=== PATIENT | female | born 1945 | race Caucasian/White ===

== ENCOUNTER 2021-10-10 07:27 | Inpatient (IN) ==
[2021-10-10] MEDS ORDERED: FLUORESCEIN ONE (08:07)
--- NOTE | 2021-10-10 08:10 | DR.URIAD ---
HPI Time Seen Time Seen by Provider: 10/10/21 08:08 PCP Primary Care Physician: LYUBOV YBARRA Complaint Chief Complaint Doctors Comments: 76 y/o female treated for pneumonia 2 weeks ago, presents for evaluation. Not feeling better, was treated with cipro, had steroids added yesterday. Pt with increasing dyspnea. Worse with talking, exertion, better with rest. Having cough, mostly npon productive. Having anterior chest pain, radiates to the back. Sharp, worse with breathing. + nausea, vomited once last pm. Having recurrent fevers. Chief Complaint:: PT REPORTS DX OF PNEUMONIA PER LYUBOV YBARRA 2 WEEKS AGO , PT WAS PLACED ON ABX ( CIPRO ) PT REPORTS CALLING LYUBOV YBARRA'S OFF ON 10/09/21 AND PT PLACED ON STERIODS DUE TO > SOB, AND SHARP PAINS TO HER RIGHT CHEST AREA ,BR Self Treatment fo Chief Complaint: LOW GRADE TEMP AT HOME , 100.7 COVID-19 Coronavirus risk:travel/contact w/high risk person: No Has patient experienced Coronavirus symptoms: Yes Coronavirus symptoms experienced: Fever, Coughing and Shortness of Breath Reviewed Nurses Notes Reviewed: Yes Source History Provided: Patient Mode of Arrival Mode of Arrival: Ambulatory Timing Onset of Chief Complaint: 09/26/21 PMH PMH Past Medical History: No Past Surgical History: No Family History History of Family Medical Conditions: No Social History Does patient currently use any type of tobacco product: No Have you used tobacco products in the last 12 months: No Type of Tobacco Use: None Does any household member use tobacco: No Alcohol Use: None Do you use any recreational Drugs:: No Lives With: Family Lives Where: Home Travel Risk Coronavirus risk:travel/contact w/high risk person: No Has patient experienced Coronavirus symptoms: No Infectious screening In the last 2 months have you had wt loss of >10#?: NO Have you had fever, night sweats or hemotysis?: No Have you traveled outside the country in the last 6 months?: No Isolation: Standard ROS Review of Systems Constitutional: Fever Eyes: No Symptoms Reported ENTM: No Symptoms Reported Respiratoy: Non-Productive Cough and Short of Breath Cardiovascular: Chest Pain Gastrointestinal/Abdominal: Nausea and Vomiting Genitourinary: No Symptoms Reported Neurological: No Symptoms Reported Musculoskeletal: No Symptoms Reported Integumentary: No Symptoms Reported Hematologic/Lymphatic: No Symptoms Reported Psychiatric: No Symptoms Reported All Other Systems: Reviewed and Negative PE Vital Signs Vitals: Temperature 96.6 F Pulse Rate 88 Respiratory Rate 22 Blood Pressure 148/67 O2 Sat by Pulse Oximetry 98 General Limitations: No Limitations General Appearance: Alert Head Head Exam: Normal Inspection Eyes Eye exam: PERRL and EOMI ENT ENT Exam: Normal Exam and Mucous Membranes Moist Neck Neck Exam: Normal Inspection and Full ROM Chest Chest Inspection: Normal Inspection Respiratory Respiratory Exam: Normal Lung Sounds Bilat and Respiratory Distress (mild, worse with talking); negative Accessory Muscle Use Respiratory Exam: Bilateral: Clear to Auscultation Cardiovascular Cardiovascular Exam: Regular Rate, Normal Rhythm, Tachycardia and Normal Heart Sounds Abdominal Exam Abdominal Exam: Normal Inspection, Normal Bowel Sounds and Soft; negative Tenderness Extremeties Extremities Exam: Normal Inspection and Full ROM; negative Tenderness and Edema Back Back Exam: Normal Inspection Neurologic Neurological Exam: Alert, Oriented X3 and CN II-XII Intact; negative Motor Sensory Deficit Psychiatric Psychiatric Exam: Normal Affect Skin Skin Exam: Warm and Dry MDM Differential Diagnosis Differential Diagnosis: Pneumonia (bronchitis, CHF, PE) COURSE Treatment Treatment: 76 y/o female with worsening breathing, cough over the past 3 weeks. W/u initiated. 926 - CXR with R sided lower consolidation with effusion. WBC mildly elevated, d-dimer elevated 2.88. Na low at 126. Lactic acid, cardiac enzymes and BNP acceptable. Will pursue with a CTA of the chest for further evaluation. Given IV rocephin for antibiotic coverage. 1055 - CTA - + RML/RLL infiltrate with surrounding pleural effusion. Discussed with Dr Hensley, will admit. ROR Labs Reviewed Laboratory Results Reviewed?: Yes Result Diagrams: 10/10/21 08:39 10/10/21 08:39 Laboratory: WBC 10.9 X10^3/uL (3.6-10.0) H 10/10/21 08:39 RBC 5.00 X10^6/uL (3.5-5.4) 10/10/21 08:39 Hgb 14.6 g/dL (12.0-16.0) 10/10/21 08:39 Hct 42.1 % (36.0-47.0) 10/10/21 08:39 MCV 84.2 fL (80.0-100.0) 10/10/21 08:39 MCH 29.2 pg (27.0-34.0) 10/10/21 08:39 MCHC 34.7 g/dL (33.0-35.0) 10/10/21 08:39 RDW 13.6 % (11.6-16.5) 10/10/21 08:39 Plt Count 265 X10^3/uL (150.0-450.0) 10/10/21 08:39 MPV 8.3 fL (7.4-11.0) 10/10/21 08:39 Neut % (Auto) 77.3 % (42.0-75.0) H 10/10/21 08:39 Lymph % (Auto) 10.8 % (21.0-51.0) L 10/10/21 08:39 [place] % (Auto) 10.4 % (0.0-13.0) 10/10/21 08:39 Eos % (Auto) 1.1 % (0.9-2.9) 10/10/21 08:39 Baso % (Auto) 0.4 % (0.2-1.0) 10/10/21 08:39 Neut # (Auto) 8.4 x10^3/uL (2.2-4.8) H 10/10/21 08:39 Lymph # (Auto) 1.2 X10^3/uL (1.3-2.9) L 10/10/21 08:39 [place] # (Auto) 1.1 x10^3/uL (0.3-0.8) H 10/10/21 08:39 Eos # (Auto) 0.1 x10^3/uL (0.0-0.2) 10/10/21 08:39 Baso # (Auto) 0.0 X10^3/uL (0.0-0.1) 10/10/21 08:39 Absolute Nucleated RBC 0.0 /100WBC 10/10/21 08:39 D-Dimer 2.88 ug/ml (0.0-0.57) H* 10/10/21 08:39 Sodium 126 mmol/L (136-145) L 10/10/21 08:39 Corrected Sodium 127 mmol/L (136-145) L 10/10/21 08:39 Potassium 3.7 mmol/L (3.5-5.1) 10/10/21 08:39 Chloride 90 mmol/L (98-107) L 10/10/21 08:39 Carbon Dioxide 27.9 mmol/L (21-32) 10/10/21 08:39 BUN 8 mg/dL (7-18) 10/10/21 08:39 Creatinine 0.88 mg/dL (0.55-1.02) 10/10/21 08:39 Est GFR (MDRD) Af Amer > 60 (>60) 10/10/21 08:39 Est GFR (MDRD) Non-Af > 60 (>60) 10/10/21 08:39 Glucose 139 mg/dL (65-99) H 10/10/21 08:39 Lactic Acid 0.8 mmol/L (0.4-2.0) 10/10/21 08:39 Calcium 8.5 mg/dL (8.5-10.1) 10/10/21 08:39 Corrected Calcium 9.1 mg/dL (8.5-10.1) 10/10/21 08:39 Total Bilirubin 0.80 mg/dL (0.2-1.0) 10/10/21 08:39 AST 26 Units/L (15-37) 10/10/21 08:39 ALT 23 Units/L (12-78) 10/10/21 08:39 Alkaline Phosphatase 83 Units/L (46-116) 10/10/21 08:39 Creatine Kinase 65 Units/L (26-192) 10/10/21 08:39 CK-MB (CK-2) 1.3 ng/mL (0-4.0) 10/10/21 08:39 CK/CKMB % Calc 2.0 % (<4) 10/10/21 08:39 Troponin I High Sens 6.5 ng/L (4.0-60.0) 10/10/21 08:39 B-Natriuretic Peptide 37.8 pg/mL (0-79) 10/10/21 08:39 Total Protein 7.2 g/dL (6.4-8.2) 10/10/21 08:39 Albumin 3.2 g/dL (3.4-5.0) L 10/10/21 08:39 Globulin 4.0 g/dL (2.5-4.5) 10/10/21 08:39 Albumin/Globulin Ratio 0.8 Ratio (1.1-2.1) L 10/10/21 08:39 Lipase 135 Units/L (73-393) 10/10/21 08:39 Specimen Type Clean catch urine 10/10/21 08:29 Urine Color Straw (YELLOW) 10/10/21 08:29 Urine Appearance Clear (CLEAR) 10/10/21 08:29 Urine pH 6.0 (5.0 - 8.0) 10/10/21 08:29 Ur Specific [place] 1.015 (1.000-1.030) 10/10/21 08:29 Urine Protein 1+ (NEGATIVE) 10/10/21 08:29 Urine Glucose (UA) Negative (NEGATIVE) 10/10/21 08:29 Urine Ketones Negative (NEGATIVE) 10/10/21 08:29 Urine Blood 1+ (NEGATIVE) 10/10/21 08:29 Urine Nitrite Negative (NEGATIVE) 10/10/21 08:29 Urine Bilirubin Negative (NEGATIVE) 10/10/21 08:29 Urine Urobilinogen Normal (NORMAL) 10/10/21 08:29 Ur Leukocyte Esterase Negative (NEGATIVE) 10/10/21 08:29 Urine RBC 0-2 /HPF (0-3) 10/10/21 08:29 Urine WBC 0-2 /HPF (0-5) 10/10/21 08:29 Ur Squamous Epith Cells Rare /HPF (NEGATIVE) 10/10/21 08:29 Urine Bacteria Trace /HPF (NEGATIVE) 10/10/21 08:29 Ur Culture Indicated? No/not indicated 10/10/21 08:29 SARS-CoV-2 (PCR) Negative (NEGATIVE) 10/10/21 08:29 Influenza Type A (PCR) Negative (NEGATIVE) 10/10/21 08:29 Influenza Type B (PCR) Negative (NEGATIVE) 10/10/21 08:29 RSV (PCR) Negative (NEGATIVE) 10/10/21 08:29 XRAY XRAY Interpreted by: Both X-ray Results: + RML/RLL consolidation with effusion EKG Rate: 101 [place]: Normal Rhythm: ST Block: None Hypertrophy: None ST: Nonsp Opioid Opioid Risk Tool Age (Nabil box if 16-45): No History of Preadolescent Sexual Abuse: No Total: 0 Total Score Risk Category: Low Risk Copyright: [employer] LR predicting aberrant behaviors Diagnosis Discharge Problem: Pneumonia involving right lung Qualifiers: Pneumonia type: due to unspecified organism Lung location: unspecified part of lung Qualified Code(s): J18.9 - Pneumonia, unspecified organism
[2021-10-10] MEDS ORDERED: NS 500 ML IV 500 ML IV ONE ×2 (08:16→08:24)
--- NOTE | 2021-10-10 08:40 | RAD ---
HISTORYCOUGH, FEVER, PNEUMONIASTUDYCHEST, 1 VIEWCOMPARISONNoneTECHNIQUEAP view of the chestFINDINGSThe right heart border is silhouetted. There is right mid to lower lung airspace opacity. Suspect a subpulmonic effusion. No pneumothoraxIMPRESSIONRight mid to lower lung pneumonia with subpulmonic effusion suspected. Recommend follow-up to document resolution.Electronically signed by: Leobardo Nelson (Oct 10, 2021 08:39:55)
[2021-10-10 08:48] LABS: BILIRUBIN,URINE NEGATIVE (NEGATIVE); BLOOD/HEMOGLOBIN,URINE 1+ (NEGATIVE); GLUCOSE, URINE NEGATIVE (NEGATIVE); KETONES,URINE NEGATIVE (NEGATIVE); LEUKOCYTE ESTERASE ,URINE NEGATIVE (NEGATIVE); NITRITES,URINE NEGATIVE (NEGATIVE); PROTEIN,URINE 1+ (NEGATIVE); UROBILINOGEN,URINE NORMAL (NORMAL)
[2021-10-10 08:55] LABS: BASOPHILS % (AUTO) 0.4 % (0.2-1.0); EOSINOPHILS # (AUTO) 0.1 x10^3/uL (0.0-0.2); EOSINOPHILS % (AUTO) 1.1 % (0.9-2.9); HEMATOCRIT 42.1 % (36.0-47.0); HEMOGLOBIN 14.6 g/dL (12.0-16.0); LYMPHOCYTES # (AUTO) 1.2 X10^3/uL (1.3-2.9); LYMPHOCYTES % (AUTO) 10.8 % (21.0-51.0); MEAN CORPUSCULAR HEMOGLOBIN 29.2 pg (27.0-34.0); MEAN CORPUSCULAR HGB CONC 34.7 g/dL (33.0-35.0); MEAN CORPUSCULAR VOLUME 84.2 fL (80.0-100.0); MEAN PLATELET VOLUME 8.3 fL (7.4-11.0); MONOCYTES # (AUTO) 1.1 x10^3/uL (0.3-0.8); MONOCYTES % (AUTO) 10.4 % (0.0-13.0); NEUTROPHILS # (AUTO) 8.4 x10^3/uL (2.2-4.8); NEUTROPHILS % (AUTO) 77.3 % (42.0-75.0); RED CELL DISTRIBUTION WIDTH 13.6 % (11.6-16.5); WHITE BLOOD COUNT 10.9 X10^3/uL (3.6-10.0)
[2021-10-10 08:59] LABS: APPEARANCE,URINE CLEAR (CLEAR); COLOR,URINE STRAW (YELLOW)
[2021-10-10 09:00] LABS: BACTERIA,URINE TRACE /HPF (NEGATIVE); RBC,URINE 0-2 /HPF (0-3); SQUAMOUS EPITHELIAL CELL,UR RARE /HPF (NEGATIVE)
[2021-10-10 09:10] LABS: LACTIC ACID 0.8 mmol/L (0.4-2.0)
[2021-10-10 09:18] LABS: ALANINE AMINOTRANSFERASE 23 Units/L (12-78); ALBUMIN 3.2 g/dL (3.4-5.0); ALKALINE PHOSPHATASE 83 Units/L (46-116); ASPARTATE AMINO TRANSFERASE 26 Units/L (15-37); BLOOD UREA NITROGEN 8 mg/dL (7-18); CALCIUM 8.5 mg/dL (8.5-10.1); CARBON DIOXIDE 27.9 mmol/L (21-32); CHLORIDE 90 mmol/L (98-107); COR CA(FOR HYPOALB) 9.1 mg/dL (8.5-10.1); CREATINE KINASE 65 Units/L (26-192); CREATININE 0.88 mg/dL (0.55-1.02); LIPASE 135 Units/L (73-393); TOTAL PROTEIN 7.2 g/dL (6.4-8.2); eGFR NON BLACK RACES > 60 (>60)
[2021-10-10] MEDS ORDERED: ROCEPHIN 1 GRAM IV PREMIX 1 G/50 ML IV.SOLN. IV ONE (09:28)
[2021-10-10 09:40] LABS: CREATINE KINASE MB 1.3 ng/mL (0-4.0)
[2021-10-10 09:43] LABS: COR NA(FOR HYPERGLY) 127 mmol/L (136-145); SODIUM 126 mmol/L (136-145)
[2021-10-10] MEDS ORDERED: ROCEPHIN VIAL 1 GRAM 1 G in NS 100 ML IV 100 ML IV NR (09:45)
[2021-10-10] MEDS ORDERED: NS 100 ML IV 100 ML ONE ×3 (09:51→23:21)
[2021-10-10] MEDS ORDERED: ROCEPHIN VIAL 1 GRAM ONE (09:51)
--- NOTE | 2021-10-10 11:29 | CT ---
HISTORYPT REPORTS DX OF PNEUMONIA 2 WEEKS AGO, PT WAS PLACED ON ABX ( CIPRO ) PT PLACED ON STERIODS DUE TO > SOB, AND SHARP PAINS TO HER RIGHT CHEST AREASTUDYCTA CHESTCOMPARISONChest radiograph from same day.TECHNIQUECTA chest protocol with axial images from the thoracic inlet to upper abdomen with contrast. Sagittal and coronal reformats and MIP images were created. Automated exposure control was utilized.FINDINGSThe visualized thyroid gland appears benign. Mildly atherosclerotic normal caliber thoracic aorta. Pulmonary artery is normal in caliber centrally. No filling defect is identified to suggest pulmonary embolism. There is leftward shift of the heart and mediastinum. The heart is borderline in size. Small pericardial effusion. Conspicuous number of lymph nodes in the mediastinum. Prevascular space lymph node measures 9 mm image 47 series 4. There is soft tissue in right hilum extending into the right subcarinal station. Enlarged right lower paratracheal lymph node at 1.2 cm short axis image 46 series 4.Visualized upper abdomen has a benign appearance. No acute osseous abnormality. Mild thoracic kyphosis. The trachea and mainstem bronchi appear patent. Right upper lobe ground-glass and airspace opacities consistent with pneumonia in the right clinical setting. See image 57 series 5 for example. There is moderate to large right pleural effusion. Associated right lower lobe atelectasis. 4 x 3 mm left lower lobe pulmonary nodule image 86 series 5. There innumerable (> 30) less than 6 mm pulmonary nodules best seen on the axial MIPS sequence. For example such as image 17 series 10 in the left upper lobe. These nodules are seen throughout both lungs. No pneumothorax.IMPRESSIONInnumerable less than 6 mm bilateral pulmonary nodules are nonspecific and may represent infection or metastasis. Right upper lobe ground-glass and airspace opacity consistent with pneumonia in the right clinical setting. Moderate to large pleural effusion with mild contralateral shift of the heart and mediastinum. Mediastinal and hilar adenopathy worse on the right. This may be reactive or metastatic. Recommend follow-up CT after appropriate treatment to document resolution of these findings.Electronically signed by: Leobardo Nelson (Oct 10, 2021 11:28:44)
[2021-10-10] MEDS ORDERED: ROCEPHIN 1 GRAM IV PREMIX 1 G/50 ML IV.SOLN. IV SCH (14:05)
[2021-10-10] MEDS ORDERED: ROCEPHIN VIAL 1 GRAM 1 G in NS 100 ML IV 100 ML IV SCH (14:15)
[2021-10-10 14:32] VITALS: BMI 27.4
[2021-10-10] MEDS ORDERED: SALINE 3% 15 ML NEB TX NEB ONE (16:31)
[2021-10-10] MEDS: LOVENOX INJ 40 MG SYR SC SCH (16:46)
[2021-10-10] MEDS: XOPENEX 1.25 MG/3 ML NEBULE NEB SCH (17:07)
[2021-10-10] MEDS ORDERED: PULMICORT NEB TX 0.5 MG NEB ONE (19:16)
[2021-10-10] MEDS: PULMICORT NEB TX 0.5 MG NEB SCH (20:20)
[2021-10-10] MEDS ORDERED: LEVAQUIN PREMIX IV 500 MG 500 MG/100 ML BAG IV SCH (22:00)
[2021-10-10] MEDS ORDERED: FORTAZ or TAZICEF VIAL INJ ONE ×2 (22:06→23:21)
[2021-10-10] MEDS: FORTAZ or TAZICEF VIAL INJ 1 G in NS 100 ML IV + SPIKE MINIBAG* 100 ML IV SCH (22:09)
[2021-10-11] MEDS: XOPENEX 1.25 MG/3 ML NEBULE NEB SCH ×4 (00:09→18:31)
[2021-10-11 05:35] LABS: BASOPHILS # (AUTO) 0.1 X10^3/uL (0.0-0.1); BASOPHILS % (AUTO) 0.7 % (0.2-1.0); EOSINOPHILS # (AUTO) 0.1 x10^3/uL (0.0-0.2); EOSINOPHILS % (AUTO) 1.3 % (0.9-2.9); HEMATOCRIT 34.6 % (36.0-47.0); LYMPHOCYTES # (AUTO) 1.2 X10^3/uL (1.3-2.9); LYMPHOCYTES % (AUTO) 14.7 % (21.0-51.0); MEAN CORPUSCULAR HEMOGLOBIN 28.8 pg (27.0-34.0); MEAN CORPUSCULAR HGB CONC 34.3 g/dL (33.0-35.0); MEAN PLATELET VOLUME 8.8 fL (7.4-11.0); MONOCYTES % (AUTO) 12.9 % (0.0-13.0); NEUTROPHILS # (AUTO) 5.5 x10^3/uL (2.2-4.8); NEUTROPHILS % (AUTO) 70.4 % (42.0-75.0); RED BLOOD COUNT 4.12 X10^6/uL (3.5-5.4); RED CELL DISTRIBUTION WIDTH 13.6 % (11.6-16.5); WHITE BLOOD COUNT 7.8 X10^3/uL (3.6-10.0)
[2021-10-11] MEDS: FORTAZ or TAZICEF VIAL INJ 1 G in NS 100 ML IV + SPIKE MINIBAG* 100 ML IV SCH (05:47)
[2021-10-11 05:48] LABS: ALANINE AMINOTRANSFERASE 21 Units/L (12-78); ALBUMIN 2.3 g/dL (3.4-5.0); ALKALINE PHOSPHATASE 69 Units/L (46-116); ASPARTATE AMINO TRANSFERASE 22 Units/L (15-37); BLOOD UREA NITROGEN 6 mg/dL (7-18); CALCIUM 7.7 mg/dL (8.5-10.1); CARBON DIOXIDE 26.2 mmol/L (21-32); CHLORIDE 96 mmol/L (98-107); COR CA(FOR HYPOALB) 9.1 mg/dL (8.5-10.1); COR NA(FOR HYPERGLY) 130 mmol/L (136-145); HEMOGLOBIN 11.9 g/dL (12.0-16.0); SODIUM 129 mmol/L (136-145); TOTAL PROTEIN 5.6 g/dL (6.4-8.2); eGFR NON BLACK RACES > 60 (>60)
--- NOTE | 2021-10-11 05:51 | RAD ---
PROCEDURE: Chest X-ray 1 View .HISTORY: Dyspnea.TECHNIQUE: AP view .COMPARISON: 10/10/2021.TECHNICAL QUALITY: Satisfactory .FINDINGS:Unremarkable cardio mediastinal silhouette and normal central vascularity.Unchanged pneumonia right mid lower lung field with elevated right hemidiaphragm. Left lung gu clear.IMPRESSION:Unchanged right-sided pneumonia.Electronically signed by: Dago Messina (Oct 11, 2021 05:50:26)
[2021-10-11] MEDS ORDERED: K-RIDER 10 MEQ/NS 100 ML 10 MEQ/100 ML BAG IV PRN (07:15)
[2021-10-11] MEDS ORDERED: K-DUR TAB 20 MEQ PO PRN (07:15)
[2021-10-11] MEDS ORDERED: POTASSIUM CHL 40 MEQ/NS 0.45% 500 ML IV PRN (07:15)
[2021-10-11] MEDS ORDERED: KLOR-CON PO PRN (07:15)
[2021-10-11] MEDS ORDERED: MICRO K EXTEN CAP 10 MEQ PO PRN (07:15)
[2021-10-11] MEDS ORDERED: POTASSIUM CHL 60 MEQ/NS 0.45% 500 ML IV PRN (07:15)
[2021-10-11] MEDS ORDERED: POTASSIUM CHLORIDE LIQ 20 MEQ UDC PO PRN (07:15)
[2021-10-11] MEDS: ZIAC 5/6.25 MG PO SCH (08:34)
[2021-10-11] MEDS: LOVENOX INJ 40 MG SYR SC SCH (08:36)
[2021-10-11] MEDS: ROBITUSSIN DM PO SCH ×3 (08:47→21:13)
[2021-10-11] MEDS: PULMICORT NEB TX 0.5 MG NEB SCH ×2 (08:55→20:55)
--- NOTE | 2021-10-11 10:51 | DR.H&P ---
H&P - History & Physical for Day of: H&P Date: 10/10/21 - Chief Complaint Chief Complaint: SHORTNESS OF BREATH, COUGH - History of Present Illness History of Present Illness: IS A 76 YEAR OLD PATIENT OF OURS. SHE PRESENTED TO THE ER WITH COMPLAINTS OF INCREASING SHORTNESS OF BREATH, ANTERIOR CHEST PAIN WITH RADIATION TO THE BACK, AND A NON-PRODUCTIVE COUGH. WE HAVE BEEN TREATING HER IN THE OFFICE FOR PNEUMONIA FOR THE PAST TWO WEEKS. SHE HAS TAKEN A COURSE OF CIPRO. A MEDROL DOSEPACK WAS ALSO CALLED IN YESTERDAY. SHE REPORTS THAT SHORTNESS OF BREATH IS WORSE WHEN TALKING AND ON EXERTION. IT IS BETTER WITH REST. SHE ALSO ADMITS TO RECURRENT FEVER. SHE REPORTS HAVING A DRY, HACKING COUGH SINCE JUNE. PAIN IN CHEST IS DESCRIBED SHARP AND INTERMITTENT. HER PMH INCLUDES HYPERTENSION. ON ARRIVAL TO THE ER, VITALS WERE 96. 6-100-22-95%-159/74. LABS WERE OBTAINED. WBC 10.9, RBC 5.00, HGB 14.6, HCT 42.1, D-DIMER 2.88, SODIUM 126, CHLORIDE 90, BUN 8, CREATININE 0.88, GLUCOSE 139, LACTIC ACID 0.8, CALCIUM 8.5, AST 26, ALT 23, ALK PHOS 83, TOTAL PROTEIN 7.2, ALBUMIN 3.2. CARDIAC ENZYMES WERE WITHIN NORMAL LIMITS. URINALYSIS WAS UNREMARKABLE. COVID-19, INFLUENZA, AND RSV NEGATIVE. BLOOD CULTURES WERE SET UP. EKG OBTAINED AND REVEALED: SINUS TACHYCARDIA WITH HR 101. CHEST XRAY REVEALED: Right mid to lower lung pneumonia with subpulmonic effusion suspected. A CHEST CTA WAS OBTAINED AND REVEALED: Innumerable less than 6 mm bilateral pulmonary nodules are nonspecific and may represent infection or metastasis. Right upper lobe ground-glass and airspace opacity consistent with pneumonia in the right clinical setting. Moderate to large pleural effusion with mild contralateral shift of the heart and mediastinum. Mediastinal and hilar adenopathy worse on the right. This may be reactive or metastatic. IN THE ER, SHE WAS GIVEN A NORMAL SALINE BOLUS, ROCEPHIN 1G IV X 1 DOSE. SHE WAS ADMITTED TO THE HOSPITAL FOR FURTHER EVALUATON AND TREATMENT OF RIGHT SIDED PNEUMONIA, LARGE PLEURAL EFFUSION, MULTIPLE PULMONARY NODULES, AND SHORTNESS OF BREATH. SHE WAS STARTED ON FORTAZ 1G IV Q8H, LEVAQUIN 500MG IV DAILY, SOLU-MEDROL 80MG IV Q8H, ROBITUSSIN DM 10ML PO QID, PULMICORT NEBS BID, XOPENEX NEBS Q6H, LOVENOX 40MG SC DAILY, AND THE POTASSIUM PROTOCOL. WE WILL RESUME HER HOME MEDICATION OF ZIAC. WE WILL OBTAIN A SPUTUM CULTURE, AIT RESPIRATORY PANEL, ECHO, ROBERTO PANEL, AND WILL CONSULT FOR POSSIBLE THORACENTISIS. OTHERWISE, WE PLAN TO FOLLOW UP WITH AM LABS AND CHEST XRAY AND CONTINUE TO MONITOR. TIME SPENT ON CLINICAL ASSESSMENT, REVIEWING LABS AND IMAGING, DECISION MAKING, AND DOCUMENTATION GREATER THAN 75 MINUTES. - Past Medical History Past Medical History: Hypertension - Past Surgical History Surgical History: Hysterectomy - Family History Family Medical History: Diabetes Mellitus, Cancer, [place], Hypertension - Social History Does patient currently use any type of tobacco product: No Have you used tobacco products in the last 12 months: No Type of Tobacco Use: None Does any household member use tobacco: Yes Alcohol Use: None - Medications Home Medications: codeine Allergy (Verified 10/10/21 08:25) CONTINUE taking the following medications bisoprolol-hydrochlorothiazide 1 tab PO DAILY 10/10/21 [History] ciprofloxacin HCl 750 mg PO DAILY 10/10/21 [History] methylprednisolone 4 mg PO DIRECTED 10/10/21 [History] - Review of Systems Constitutional: Fever, Weakness Eyes: No Symptoms Reported ENT: No Symptoms Reported Respiratory: See HPI, Cough, Dry, Shortness of Breath, SOB with Excertion Cardiovascular: No Symptoms Reported Gastrointestinal: No Symptoms Reported Genitourinary: No Symptoms Reported Musculoskeletal: No Symptoms Reported Skin: No Symptoms Reported Neurological: Weakness - Physical Exam Vital Signs: Temperature 98.2 F Pulse Rate [Left Radial] 109 Pulse Rate 93 Respiratory Rate 18 Blood Pressure [Right Arm] 134/60 Blood Pressure [Left Arm] 126/58 Blood Pressure 148/67 O2 Sat by Pulse Oximetry 100 Oriented: Normal Eyes: Normal Ear: Normal Nose: Normal Throat: Normal Respiratory: Diminished Throughout Cardiovascular: Normal : Normal Auscultation: Bowel Sounds: Normal Palpation: Normal Tenderness: Normal Skin: Normal Musculoskeletal: Normal Psychiatric: Normal Mood Description: Calm Affect: Normal Speech Pattern: Clear - Assessment/Plan (1) Pneumonia involving right lung Qualifiers: Pneumonia type: due to unspecified organism Lung location: unspecified part of lung Qualified Code(s): J18.9 - Pneumonia, unspecified organism Status: Acute Plan: ADMIT, FORTAZ 1G IV Q8H, LEVAQUIN 500MG IV DAILY, SOLU-MEDROL 80MG IV Q8H, ROBITUSSIN DM 10ML PO QID, PULMICORT NEBS BID, XOPENEX NEBS Q6H, LOVENOX 40MG SC DAILY, AND THE POTASSIUM PROTOCOL. CONSULT FOR THORACENTESIS. RESUME ZIAC (2) Large pleural effusion Status: Acute (3) Multiple lung nodules on CT Status: Acute (4) Shortness of breath Status: Acute - Allergies Allergies/Adverse Reactions: Allergies Allergy/AdvReac Type Severity Reaction Status Date / Time codeine Allergy Verified 10/10/21 08:25
[2021-10-11] MEDS ORDERED: NS 250 ML IV 250 ML IV ONE (11:57)
[2021-10-11] MEDS: SOLU-Medrol 40 MG VIAL IVP SCH ×3 (12:02→21:13)
[2021-10-11] MEDS: LEVAQUIN PREMIX IV 500 MG 500 MG/100 ML BAG IV SCH (12:03)
[2021-10-11] MEDS ORDERED: XANAX PO ONE (15:00)
[2021-10-11] MEDS: FORTAZ or TAZICEF VIAL INJ 1 G in NS 100 ML IV 100 ML IV SCH ×2 (15:05→21:13)
--- NOTE | 2021-10-11 16:57 | RAD ---
HISTORYThoracentesisSTUDYCHEST, 1 VIEWCOMPARISONChest radiograph, October 11, 2021 at 5:04 a.m. and CTA chest, October 10, 2021TECHNIQUEChest radiographic imaging, AP portable projection, 1 imageFINDINGSNo cardiomegaly.Airspace disease in the right perihilar region; as seen on the previous exam.Decreased right sided pleural effusion.Prominent interstitial markings in the right lung versus the left.No pneumothorax.No acute osseous abnormality.IMPRESSIONDecreased right pleural effusion is consistent with the given history of a recent thoracentesis. No pneumothorax is identified. Persistent airspace disease and increased interstitial markings in the right lung. Recommend follow-up imaging as discussed on the CTA chest report from October 10, 2021.Electronically signed by: Gelacio Peres (Oct 11, 2021 16:56:10)
[2021-10-11 17:26] LABS: ALBUMIN 2.7 g/dL (3.4-5.0)
[2021-10-11] MEDS ORDERED: LEVAQUIN PREMIX IV 250 MG 250 MG/50 ML BAG IV SCH (21:00)
[2021-10-12] MEDS: XOPENEX 1.25 MG/3 ML NEBULE NEB SCH ×4 (00:10→17:48)
[2021-10-12] MEDS: MAGNESIUM SULFATE 1 GRAM/100 mL PREMIX 1 G/100 ML BAG IV PRN ×2 (02:27→04:07)
[2021-10-12] MEDS: FORTAZ or TAZICEF VIAL INJ 1 G in NS 100 ML IV 100 ML IV SCH ×3 (05:11→21:21)
[2021-10-12] MEDS: SOLU-Medrol 40 MG VIAL IVP SCH ×3 (05:11→21:21)
[2021-10-12 06:05] LABS: BASOPHILS % (AUTO) 0.2 % (0.2-1.0); HEMOGLOBIN 12.2 g/dL (12.0-16.0); LYMPHOCYTES # (AUTO) 0.7 X10^3/uL (1.3-2.9); LYMPHOCYTES % (AUTO) 6.2 % (21.0-51.0); MEAN CORPUSCULAR HEMOGLOBIN 28.6 pg (27.0-34.0); MEAN CORPUSCULAR HGB CONC 33.9 g/dL (33.0-35.0); MEAN CORPUSCULAR VOLUME 84.3 fL (80.0-100.0); MEAN PLATELET VOLUME 8.6 fL (7.4-11.0); MONOCYTES # (AUTO) 0.3 x10^3/uL (0.3-0.8); MONOCYTES % (AUTO) 2.4 % (0.0-13.0); NEUTROPHILS # (AUTO) 10.3 x10^3/uL (2.2-4.8); NEUTROPHILS % (AUTO) 91.2 % (42.0-75.0); RED BLOOD COUNT 4.27 X10^6/uL (3.5-5.4); RED CELL DISTRIBUTION WIDTH 13.5 % (11.6-16.5); WHITE BLOOD COUNT 11.3 X10^3/uL (3.6-10.0)
--- NOTE | 2021-10-12 06:10 | RAD ---
HISTORYSOB HX: HTN SX: HYSTERECTOMYSTUDYCHEST, 1 [id number]/01/2022FINDINGSThe trachea is midline. The cardiac silhouette is unremarkable. Airspace disease again noted in the right perihilar region. There is blunting of the right costophrenic angle due to trace pleural effusion. The left lung is clear. The bony thorax is unremarkable.IMPRESSIONStable portable chest.Electronically signed by: Rhett Rasmussen (Oct 12, 2021 06:10:41)
[2021-10-12 06:18] LABS: ALANINE AMINOTRANSFERASE 27 Units/L (12-78); ALBUMIN 2.3 g/dL (3.4-5.0); ALKALINE PHOSPHATASE 81 Units/L (46-116); ASPARTATE AMINO TRANSFERASE 22 Units/L (15-37); BLOOD UREA NITROGEN 7 mg/dL (7-18); CALCIUM 8.4 mg/dL (8.5-10.1); CARBON DIOXIDE 24.5 mmol/L (21-32); CHLORIDE 98 mmol/L (98-107); COR CA(FOR HYPOALB) 9.8 mg/dL (8.5-10.1); COR NA(FOR HYPERGLY) 134 mmol/L (136-145); CREATININE 0.95 mg/dL (0.55-1.02); MAGNESIUM 2.7 mg/dL (1.7-2.9); SODIUM 130 mmol/L (136-145); TOTAL PROTEIN 5.8 g/dL (6.4-8.2); eGFR NON BLACK RACES > 60 (>60)
[2021-10-12 06:58] LABS: PLATELET MORPHOLOGY COMMENT NORMAL (NORMAL)
[2021-10-12] MEDS: LEVAQUIN PREMIX IV 500 MG 500 MG/100 ML BAG IV SCH (08:25)
[2021-10-12] MEDS: LOVENOX INJ 40 MG SYR SC SCH (08:25)
[2021-10-12] MEDS: ZIAC 5/6.25 MG PO SCH (08:26)
[2021-10-12] MEDS: ROBITUSSIN DM PO SCH ×4 (08:33→21:21)
--- NOTE | 2021-10-12 09:27 | PCM.PROG ---
Progress Note - Progress Note for Day of Date of Exam: 10/11/21 - Subjective Subjective: WAS ADMITTED FOR TREATMENT OF PNEUMONIA, LARGE PLEURAL EFFUSION, MULTIPLE LUNG NODULES ON CT, SHORTNESS OF BREATH, AND HYPONATREMIA. TODAY, SHE IS ALERT AND ORIENTED, LYING IN BED ON MORNING ROUNDS. SHE CONTINUES WITH COMPLAINTS OF COUGH AND SHORTNESS OF BREATH TODAY. SHE REPORTS CHEST PRESSURE AND INABILITY TO TAKE A DEEP BREATH. SHE IS CURRENTLY UTILIZING OXYGEN VIA NASAL CANNULA AT 2 LPM. SATURATIONS HAVE BEEN IN THE 90s THIS MORNING AND THROUGHOUT THE NIGHT. ON EXAMINATION, HEART IS REGULAR IN RATE AND RHYTHM. BILATERAL LUNGS NOTED WITH DIMINISHED LUNG SOUNDS THROUGHOUT. ABDOMEN IS ROUND, SOFT, AND NON-TENDER WITH NORMAL BOWEL SOUNDS NOTED IN ALL QUADRANTS. HER VITALS THIS MORNING ARE: 98.2-109-18-94%-134/60. LABS WERE OBTAINED. WBC 7.8, HGB 11.9, HCT 34.6, SODIUM 128, POTASSIUM 3.6, GLUCOSE 130, CRP 113.40, TOTAL PROTEIN 5.6, ALBUMIN 2.3. BLOOD CULTURES ARE PENDING. CHEST XRAY WAS OBTAINED AND REVEALED: Unremarkable cardio mediastinal silhouette and normal central vascularity. Unchanged pneumonia right mid lower lung field with elevated right hemidiaphragm. Left lung gu clear. SHE IS CURRENTLY RECEIVING FORTAZ 1G IV Q8H, LEVAQUIN 500MG IV DAILY, SOLU-MEDROL 80MG IV Q8H, ROBITUSSIN DM 10ML PO QID, PULMICORT NEBS BID, XOPENEX NEBS Q6H, LOVENOX 40MG SC DAILY, ZIAC 1 TABLET DAILY, AND THE POTASSIUM PROTOCOL. WE WILL OBTAIN AN ECHO THIS MORNING. WE HAVE CONSULTED WITH , GENERAL SURGEON, FOR POSSIBLE THORACENTESIS. HE WILL SEE PATIENT THIS MORNING. OTHERWISE, WE PLAN TO FOLLOW UP WITH AM LABS AND CHEST XRAY AND CONTINUE TO MONITOR. TIME SPENT ON CLINICAL ASSESSMENT, REVIEWING LABS AND IMAGING, DECISION MAKING, AND DOCUMENTATION GREATER THAN 45 MINUTES. - Past Medical Family Social History Past Med/Fam/Surg Hx: No changes since H&P Allergies: Allergies codeine Allergy (Verified 10/10/21 08:25) - Review of Systems ROS: No change since H&P - Vital Signs and I&O's Vital Signs: Temperature 97.8 F Pulse Rate [Left Radial] 96 Pulse Rate 98 Respiratory Rate 18 Blood Pressure [Right Arm] 123/58 Blood Pressure [Left Arm] 126/58 Blood Pressure 148/67 O2 Sat by Pulse Oximetry 93 Intake and Output: Intake & Output 10/09/21 10/10/21 10/11/21 10/12/21 11:59 11:59 11:59 11:59 Intake Total 1380 / 1380 1610 / 1610 Output Total 1500 / 1500 Balance 1380 / 1380 110 / 110 - Physical Exam Oriented: Normal Eyes: Normal Ear: Normal Nose: Normal Throat: Normal Respiratory: Generalized, Diminished Cardiovascular: Normal : Normal Auscultation: Bowel Sounds: Normal Palpation: Normal Tenderness: Normal Skin: Normal Musculoskeletal: Normal Psychiatric: Normal Mood Description: Calm Affect: Normal Speech Pattern: Clear, Appropriate - Laboratory and Diagnostics Result Diagrams: 10/12/21 05:30 10/12/21 05:30 Labs: Laboratory WBC 11.3 X10^3/uL (3.6-10.0) H 10/12/21 05:30 RBC 4.27 X10^6/uL (3.5-5.4) 10/12/21 05:30 Hgb 12.2 g/dL (12.0-16.0) 10/12/21 05:30 Hct 36.0 % (36.0-47.0) 10/12/21 05:30 MCV 84.3 fL (80.0-100.0) 10/12/21 05:30 MCH 28.6 pg (27.0-34.0) 10/12/21 05:30 MCHC 33.9 g/dL (33.0-35.0) 10/12/21 05:30 RDW 13.5 % (11.6-16.5) 10/12/21 05:30 Plt Count 257 X10^3/uL (150.0-450.0) 10/12/21 05:30 Plt Count Comment Adequate (ADEQUATE) 10/12/21 05:30 MPV 8.6 fL (7.4-11.0) 10/12/21 05:30 Neut % (Auto) 91.2 % (42.0-75.0) H 10/12/21 05:30 Lymph % (Auto) 6.2 % (21.0-51.0) L 10/12/21 05:30 [place] % (Auto) 2.4 % (0.0-13.0) 10/12/21 05:30 Eos % (Auto) 0.0 % (0.9-2.9) L 10/12/21 05:30 Baso % (Auto) 0.2 % (0.2-1.0) 10/12/21 05:30 Neut # (Auto) 10.3 x10^3/uL (2.2-4.8) H 10/12/21 05:30 Lymph # (Auto) 0.7 X10^3/uL (1.3-2.9) L 10/12/21 05:30 [place] # (Auto) 0.3 x10^3/uL (0.3-0.8) 10/12/21 05:30 Eos # (Auto) 0.0 x10^3/uL (0.0-0.2) 10/12/21 05:30 Baso # (Auto) 0.0 X10^3/uL (0.0-0.1) 10/12/21 05:30 Absolute Nucleated RBC 0.0 /100WBC 10/12/21 05:30 Total Counted 100 10/12/21 05:30 Neutrophils % (Manual) 96 % (39-76) H 10/12/21 05:30 Lymphocytes % (Manual) 3 % (13-43) L 10/12/21 05:30 Monocytes % (Manual) 1 % (4-9) L 10/12/21 05:30 Plt Morphology Comment Normal (NORMAL) 10/12/21 05:30 RBC Morphology Normal (NORMAL) 10/12/21 05:30 D-Dimer 2.88 ug/ml (0.0-0.57) H* 10/10/21 08:39 Sodium 130 mmol/L (136-145) L 10/12/21 05:30 Corrected Sodium 134 mmol/L (136-145) L 10/12/21 05:30 Potassium 4.2 mmol/L (3.5-5.1) 10/12/21 05:30 Chloride 98 mmol/L (98-107) 10/12/21 05:30 Carbon Dioxide 24.5 mmol/L (21-32) 10/12/21 05:30 BUN 7 mg/dL (7-18) 10/12/21 05:30 Creatinine 0.95 mg/dL (0.55-1.02) 10/12/21 05:30 Est GFR (MDRD) Af Amer > 60 (>60) 10/12/21 05:30 Est GFR (MDRD) Non-Af > 60 (>60) 10/12/21 05:30 Glucose 250 mg/dL (65-99) H 10/12/21 05:30 POC Glucose (mg/dL) 121 mg/dL (65-99) H 10/10/21 20:55 Lactic Acid 0.8 mmol/L (0.4-2.0) 10/10/21 08:39 Calcium 8.4 mg/dL (8.5-10.1) L 10/12/21 05:30 Corrected Calcium 9.8 mg/dL (8.5-10.1) 10/12/21 05:30 Magnesium 2.7 mg/dL (1.7-2.9) 10/12/21 05:30 Total Bilirubin 0.30 mg/dL (0.2-1.0) 10/12/21 05:30 AST 22 Units/L (15-37) 10/12/21 05:30 ALT 27 Units/L (12-78) 10/12/21 05:30 Alkaline Phosphatase 81 Units/L (46-116) 10/12/21 05:30 Creatine Kinase 65 Units/L (26-192) 10/10/21 08:39 CK-MB (CK-2) 1.3 ng/mL (0-4.0) 10/10/21 08:39 CK/CKMB % Calc 2.0 % (<4) 10/10/21 08:39 Troponin I High Sens 6.5 ng/L (4.0-60.0) 10/10/21 08:39 C-Reactive Protein 99.90 mg/L (0-3.0) H 10/12/21 05:30 B-Natriuretic Peptide 81.1 pg/mL (0-79) H 10/12/21 05:30 Total Protein 5.8 g/dL (6.4-8.2) L 10/12/21 05:30 Albumin 2.3 g/dL (3.4-5.0) L 10/12/21 05:30 Globulin 3.5 g/dL (2.5-4.5) 10/12/21 05:30 Albumin/Globulin Ratio 0.7 Ratio (1.1-2.1) L 10/12/21 05:30 Lipase 135 Units/L (73-393) 10/10/21 08:39 Specimen Type Clean catch urine 10/10/21 08:29 Urine Color Straw (YELLOW) 10/10/21 08:29 Urine Appearance Clear (CLEAR) 10/10/21 08:29 Urine pH 6.0 (5.0 - 8.0) 10/10/21 08:29 Ur Specific [place] 1.015 (1.000-1.030) 10/10/21 08:29 Urine Protein 1+ (NEGATIVE) 10/10/21 08:29 Urine Glucose (UA) Negative (NEGATIVE) 10/10/21 08:29 Urine Ketones Negative (NEGATIVE) 10/10/21 08:29 Urine Blood 1+ (NEGATIVE) 10/10/21 08:29 Urine Nitrite Negative (NEGATIVE) 10/10/21 08:29 Urine Bilirubin Negative (NEGATIVE) 10/10/21 08:29 Urine Urobilinogen Normal (NORMAL) 10/10/21 08:29 Ur Leukocyte Esterase Negative (NEGATIVE) 10/10/21 08:29 Urine RBC 0-2 /HPF (0-3) 10/10/21 08:29 Urine WBC 0-2 /HPF (0-5) 10/10/21 08:29 Ur Squamous Epith Cells Rare /HPF (NEGATIVE) 10/10/21 08:29 Urine Bacteria Trace /HPF (NEGATIVE) 10/10/21 08:29 Ur Culture Indicated? No/not indicated 10/10/21 08:29 Fluid pH 8.5 10/11/21 16:30 SARS-CoV-2 (PCR) Negative (NEGATIVE) 10/10/21 08:29 Influenza Type A (PCR) Negative (NEGATIVE) 10/10/21 08:29 Influenza Type B (PCR) Negative (NEGATIVE) 10/10/21 08:29 RSV (PCR) Negative (NEGATIVE) 10/10/21 08:29 Cytology Specimen To follow 10/11/21 16:30 - Plan (1) Pneumonia involving right lung Status: Acute Qualifiers: Pneumonia type: due to unspecified organism Lung location: unspecified part of lung Qualified Code(s): J18.9 - Pneumonia, unspecified organism Plan: FORTAZ 1G IV Q8H, LEVAQUIN 500MG IV DAILY, SOLU-MEDROL 80MG IV Q8H, ROBITUSSIN DM 10ML PO QID, PULMICORT NEBS BID, XOPENEX NEBS Q6H, LOVENOX 40MG SC DAILY, ZIAC 1 TABLET DAILY, AND THE POTASSIUM PROTOCOL. CONSULT FOR THORACENTESIS. (2) Large pleural effusion Status: Acute (3) Multiple lung nodules on CT Status: Acute (4) Shortness of breath Status: Acute (5) Hyponatremia Status: Acute
--- NOTE | 2021-10-12 09:35 | PCM.PROG ---
Progress Note - Progress Note for Day of Date of Exam: 10/12/21 - Subjective Subjective: WAS ADMITTED FOR TREATMENT OF PNEUMONIA, LARGE PLEURAL EFFUSION, MULTIPLE LUNG NODULES ON CT, SHORTNESS OF BREATH, AND HYPONATREMIA. THORACENTESIS WAS PERFORMED YESTERDAY. TODAY, SHE IS ALERT AND ORIENTED, LYING IN BED ON MORNING ROUNDS. SHE CONTINUES WITH COMPLAINTS OF COUGH AND MILD SHORTNESS OF BREATH, BUT REPORTS MODERATE IMPROVEMENT SINCE THORACENTESIS. SHE IS ABLE TO TAKE DEEP BREATHS THIS MORNING AND IS NO LONGER REQUIRING THE USE OF OXYGEN. ON EXAMINATION, HEART IS REGULAR IN RATE AND RHYTHM. BILATERAL LUNGS NOTED WITH DIMINISHED LUNG SOUNDS THROUGHOUT. ABDOMEN IS ROUND, SOFT, AND NON- TENDER WITH NORMAL BOWEL SOUNDS NOTED IN ALL QUADRANTS. HER VITALS THIS MORNING ARE: 97.8-96-18-93%-123/58. LABS WERE OBTAINED. WBC WBC 11.3, HGB 12.2, HCT 36.0, SODIUM 130, POTASSIUM 4.2, BUN 7, CREATININE 0.95, GLUCOSE 250, CALCIUM 8.4, CRP 99.90, BNP 81.1, TOTAL PROTEIN 5.8, ALBUMIN 2.3. BLOOD CULTURES ARE PENDING. RESPIRATORY AIT PANEL IS ALSO PENDING. CHEST XRAY WAS OBTAINED AND REVEALED: The trachea is midline. The cardiac silhouette is unremarkable. Airspace disease again noted in the right perihilar region. There is blunting of the right costophrenic angle due to trace pleural effusion. The left lung is clear. The bony thorax is unremarkable. ECHO WAS OBTAINED YESTERDAY AND REVEALED AN EJECTION FRACTION OF 68%. SHE IS CURRENTLY RECEIVING NORMAL SALINE AT 50 ML/HR, FORTAZ 1G IV Q8H, LEVAQUIN 500MG IV DAILY, SOLU-MEDROL 80MG IV Q8H, ROBITUSSIN DM 10ML PO QID, PULMICORT NEBS BID, XOPENEX NEBS Q6H, LOVENOX 40MG SC DAILY, ZIAC 1 TABLET DAILY, AND THE POTASSIUM PROTOCOL. WE WILL CONTINUE WITH CURRENT PLAN OF CARE TODAY. OTHERWISE, WE PLAN TO FOLLOW UP WITH AM LABS AND CHEST XRAY AND CONTINUE TO MONITOR. TIME SPENT ON CLINICAL ASSESSMENT, REVIEWING LABS AND IMAGING, DECISION MAKING, AND DOCUMENTATION GREATER THAN 45 MINUTES. - Past Medical Family Social History Past Med/Fam/Surg Hx: No changes since H&P Allergies: Allergies codeine Allergy (Verified 10/10/21 08:25) - Review of Systems ROS: No change since H&P - Vital Signs and I&O's Vital Signs: Temperature 97.8 F Pulse Rate [Left Radial] 96 Pulse Rate 98 Respiratory Rate 18 Blood Pressure [Right Arm] 123/58 Blood Pressure [Left Arm] 126/58 Blood Pressure 148/67 O2 Sat by Pulse Oximetry 93 Intake and Output: Intake & Output 10/09/21 10/10/21 10/11/21 10/12/21 11:59 11:59 11:59 11:59 Intake Total 1380 / 1380 1610 / 1610 Output Total 1500 / 1500 Balance 1380 / 1380 110 / 110 - Physical Exam Oriented: Normal Eyes: Normal Ear: Normal Nose: Normal Throat: Normal Respiratory: Generalized, Diminished Cardiovascular: Normal : Normal Auscultation: Bowel Sounds: Normal Tenderness: Normal Skin: Normal Musculoskeletal: Normal Psychiatric: Normal Mood Description: Calm Affect: Normal Speech Pattern: Clear, Appropriate - Laboratory and Diagnostics Result Diagrams: 10/12/21 05:30 10/12/21 05:30 Labs: Laboratory WBC 11.3 X10^3/uL (3.6-10.0) H 10/12/21 05:30 RBC 4.27 X10^6/uL (3.5-5.4) 10/12/21 05:30 Hgb 12.2 g/dL (12.0-16.0) 10/12/21 05:30 Hct 36.0 % (36.0-47.0) 10/12/21 05:30 MCV 84.3 fL (80.0-100.0) 10/12/21 05:30 MCH 28.6 pg (27.0-34.0) 10/12/21 05:30 MCHC 33.9 g/dL (33.0-35.0) 10/12/21 05:30 RDW 13.5 % (11.6-16.5) 10/12/21 05:30 Plt Count 257 X10^3/uL (150.0-450.0) 10/12/21 05:30 Plt Count Comment Adequate (ADEQUATE) 10/12/21 05:30 MPV 8.6 fL (7.4-11.0) 10/12/21 05:30 Neut % (Auto) 91.2 % (42.0-75.0) H 10/12/21 05:30 Lymph % (Auto) 6.2 % (21.0-51.0) L 10/12/21 05:30 [place] % (Auto) 2.4 % (0.0-13.0) 10/12/21 05:30 Eos % (Auto) 0.0 % (0.9-2.9) L 10/12/21 05:30 Baso % (Auto) 0.2 % (0.2-1.0) 10/12/21 05:30 Neut # (Auto) 10.3 x10^3/uL (2.2-4.8) H 10/12/21 05:30 Lymph # (Auto) 0.7 X10^3/uL (1.3-2.9) L 10/12/21 05:30 [place] # (Auto) 0.3 x10^3/uL (0.3-0.8) 10/12/21 05:30 Eos # (Auto) 0.0 x10^3/uL (0.0-0.2) 10/12/21 05:30 Baso # (Auto) 0.0 X10^3/uL (0.0-0.1) 10/12/21 05:30 Absolute Nucleated RBC 0.0 /100WBC 10/12/21 05:30 Total Counted 100 10/12/21 05:30 Neutrophils % (Manual) 96 % (39-76) H 10/12/21 05:30 Lymphocytes % (Manual) 3 % (13-43) L 10/12/21 05:30 Monocytes % (Manual) 1 % (4-9) L 10/12/21 05:30 Plt Morphology Comment Normal (NORMAL) 10/12/21 05:30 RBC Morphology Normal (NORMAL) 10/12/21 05:30 D-Dimer 2.88 ug/ml (0.0-0.57) H* 10/10/21 08:39 Sodium 130 mmol/L (136-145) L 10/12/21 05:30 Corrected Sodium 134 mmol/L (136-145) L 10/12/21 05:30 Potassium 4.2 mmol/L (3.5-5.1) 10/12/21 05:30 Chloride 98 mmol/L (98-107) 10/12/21 05:30 Carbon Dioxide 24.5 mmol/L (21-32) 10/12/21 05:30 BUN 7 mg/dL (7-18) 10/12/21 05:30 Creatinine 0.95 mg/dL (0.55-1.02) 10/12/21 05:30 Est GFR (MDRD) Af Amer > 60 (>60) 10/12/21 05:30 Est GFR (MDRD) Non-Af > 60 (>60) 10/12/21 05:30 Glucose 250 mg/dL (65-99) H 10/12/21 05:30 POC Glucose (mg/dL) 121 mg/dL (65-99) H 10/10/21 20:55 Lactic Acid 0.8 mmol/L (0.4-2.0) 10/10/21 08:39 Calcium 8.4 mg/dL (8.5-10.1) L 10/12/21 05:30 Corrected Calcium 9.8 mg/dL (8.5-10.1) 10/12/21 05:30 Magnesium 2.7 mg/dL (1.7-2.9) 10/12/21 05:30 Total Bilirubin 0.30 mg/dL (0.2-1.0) 10/12/21 05:30 AST 22 Units/L (15-37) 10/12/21 05:30 ALT 27 Units/L (12-78) 10/12/21 05:30 Alkaline Phosphatase 81 Units/L (46-116) 10/12/21 05:30 Creatine Kinase 65 Units/L (26-192) 10/10/21 08:39 CK-MB (CK-2) 1.3 ng/mL (0-4.0) 10/10/21 08:39 CK/CKMB % Calc 2.0 % (<4) 10/10/21 08:39 Troponin I High Sens 6.5 ng/L (4.0-60.0) 10/10/21 08:39 C-Reactive Protein 99.90 mg/L (0-3.0) H 10/12/21 05:30 B-Natriuretic Peptide 81.1 pg/mL (0-79) H 10/12/21 05:30 Total Protein 5.8 g/dL (6.4-8.2) L 10/12/21 05:30 Albumin 2.3 g/dL (3.4-5.0) L 10/12/21 05:30 Globulin 3.5 g/dL (2.5-4.5) 10/12/21 05:30 Albumin/Globulin Ratio 0.7 Ratio (1.1-2.1) L 10/12/21 05:30 Lipase 135 Units/L (73-393) 10/10/21 08:39 Specimen Type Clean catch urine 10/10/21 08:29 Urine Color Straw (YELLOW) 10/10/21 08:29 Urine Appearance Clear (CLEAR) 10/10/21 08:29 Urine pH 6.0 (5.0 - 8.0) 10/10/21 08:29 Ur Specific [place] 1.015 (1.000-1.030) 10/10/21 08:29 Urine Protein 1+ (NEGATIVE) 10/10/21 08:29 Urine Glucose (UA) Negative (NEGATIVE) 10/10/21 08:29 Urine Ketones Negative (NEGATIVE) 10/10/21 08:29 Urine Blood 1+ (NEGATIVE) 10/10/21 08:29 Urine Nitrite Negative (NEGATIVE) 10/10/21 08:29 Urine Bilirubin Negative (NEGATIVE) 10/10/21 08:29 Urine Urobilinogen Normal (NORMAL) 10/10/21 08:29 Ur Leukocyte Esterase Negative (NEGATIVE) 10/10/21 08:29 Urine RBC 0-2 /HPF (0-3) 10/10/21 08:29 Urine WBC 0-2 /HPF (0-5) 10/10/21 08:29 Ur Squamous Epith Cells Rare /HPF (NEGATIVE) 10/10/21 08:29 Urine Bacteria Trace /HPF (NEGATIVE) 10/10/21 08:29 Ur Culture Indicated? No/not indicated 10/10/21 08:29 Fluid pH 8.5 10/11/21 16:30 SARS-CoV-2 (PCR) Negative (NEGATIVE) 10/10/21 08:29 Influenza Type A (PCR) Negative (NEGATIVE) 10/10/21 08:29 Influenza Type B (PCR) Negative (NEGATIVE) 10/10/21 08:29 RSV (PCR) Negative (NEGATIVE) 10/10/21 08:29 Cytology Specimen To follow 10/11/21 16:30 - Plan (1) Pneumonia involving right lung Status: Acute Qualifiers: Pneumonia type: due to unspecified organism Lung location: unspecified part of lung Qualified Code(s): J18.9 - Pneumonia, unspecified organism Plan: NS AT 50 ML/HR, FORTAZ 1G IV Q8H, LEVAQUIN 500MG IV DAILY, SOLU-MEDROL 80MG IV Q8H, ROBITUSSIN DM 10ML PO QID, PULMICORT NEBS BID, XOPENEX NEBS Q6H, LOVENOX 40MG SC DAILY, ZIAC 1 TABLET DAILY, AND THE POTASSIUM PROTOCOL. CONSULT FOR THORACENTESIS. (2) Large pleural effusion Status: Acute (3) Multiple lung nodules on CT Status: Acute (4) Shortness of breath Status: Acute (5) Hyponatremia Status: Acute
[2021-10-12] MEDS: PULMICORT NEB TX 0.5 MG NEB SCH ×2 (09:38→21:00)
[2021-10-12] MEDS ORDERED: FLONASE NASAL SPRAY ENOSTRIL SCH (10:00)
[2021-10-12] MEDS: FLONASE NASAL SPRAY ENOSTRIL SCH ×2 (14:01→21:22)
[2021-10-12] MEDS: NS 1,000 ML IV 1,000 ML IV SCH (14:02)
[2021-10-13] MEDS: NS 1,000 ML IV 1,000 ML IV SCH ×2 (00:05→15:08)
[2021-10-13] MEDS: XOPENEX 1.25 MG/3 ML NEBULE NEB SCH ×4 (00:22→17:34)
[2021-10-13 05:21] LABS: BASOPHILS % (AUTO) 0.1 % (0.2-1.0); HEMATOCRIT 36.2 % (36.0-47.0); HEMOGLOBIN 12.2 g/dL (12.0-16.0); LYMPHOCYTES # (AUTO) 0.8 X10^3/uL (1.3-2.9); LYMPHOCYTES % (AUTO) 3.4 % (21.0-51.0); MEAN CORPUSCULAR HEMOGLOBIN 28.5 pg (27.0-34.0); MEAN CORPUSCULAR HGB CONC 33.7 g/dL (33.0-35.0); MEAN CORPUSCULAR VOLUME 84.6 fL (80.0-100.0); MEAN PLATELET VOLUME 8.8 fL (7.4-11.0); MONOCYTES # (AUTO) 0.6 x10^3/uL (0.3-0.8); MONOCYTES % (AUTO) 2.6 % (0.0-13.0); NEUTROPHILS # (AUTO) 21.3 x10^3/uL (2.2-4.8); NEUTROPHILS % (AUTO) 93.9 % (42.0-75.0); RED BLOOD COUNT 4.28 X10^6/uL (3.5-5.4); RED CELL DISTRIBUTION WIDTH 13.6 % (11.6-16.5); WHITE BLOOD COUNT 22.7 X10^3/uL (3.6-10.0)
[2021-10-13 05:35] LABS: ALANINE AMINOTRANSFERASE 32 Units/L (12-78); ALBUMIN 2.3 g/dL (3.4-5.0); ALKALINE PHOSPHATASE 73 Units/L (46-116); ASPARTATE AMINO TRANSFERASE 25 Units/L (15-37); BLOOD UREA NITROGEN 13 mg/dL (7-18); CALCIUM 8.1 mg/dL (8.5-10.1); CARBON DIOXIDE 24.7 mmol/L (21-32); CHLORIDE 102 mmol/L (98-107); COR CA(FOR HYPOALB) 9.5 mg/dL (8.5-10.1); COR NA(FOR HYPERGLY) 135 mmol/L (136-145); CREATININE 0.88 mg/dL (0.55-1.02); SODIUM 133 mmol/L (136-145); TOTAL PROTEIN 5.4 g/dL (6.4-8.2); eGFR NON BLACK RACES > 60 (>60)
[2021-10-13] MEDS: FORTAZ or TAZICEF VIAL INJ 1 G in NS 100 ML IV 100 ML IV SCH ×3 (05:39→21:53)
[2021-10-13] MEDS: SOLU-Medrol 40 MG VIAL IVP SCH ×3 (05:40→21:54)
[2021-10-13 05:52] LABS: BAND NEUTROPHILS % 3 % (0-10); PLATELET MORPHOLOGY COMMENT NORMAL (NORMAL)
--- NOTE | 2021-10-13 06:26 | RAD ---
HISTORYSOB HX: HTN SX: HYSTERECTOMYSTUDYCHEST, 1 [id number] trachea is midline. The cardiac silhouette is unremarkable. Right perihilar airspace disease unchanged. The left lung is clear no pneumothorax. The bony thorax is unremarkable.IMPRESSIONStable portable chest.Electronically signed by: Rhett Rasmussen (Oct 13, 2021 06:26:14)
[2021-10-13] MEDS: ZIAC 5/6.25 MG PO SCH (08:38)
[2021-10-13] MEDS: LOVENOX INJ 40 MG SYR SC SCH (08:39)
[2021-10-13] MEDS: LEVAQUIN PREMIX IV 500 MG 500 MG/100 ML BAG IV SCH (08:39)
[2021-10-13] MEDS: FLONASE NASAL SPRAY ENOSTRIL SCH ×2 (08:42→21:53)
[2021-10-13] MEDS: ROBITUSSIN DM PO SCH ×2 (08:47→13:39)
[2021-10-13] MEDS: PULMICORT NEB TX 0.5 MG NEB SCH ×2 (09:32→21:49)
[2021-10-14] MEDS: XOPENEX 1.25 MG/3 ML NEBULE NEB SCH ×2 (00:50→06:15)
[2021-10-14 05:07] LABS: BASOPHILS % (AUTO) 0 % (0.2-1.0); HEMATOCRIT 33.8 % (36.0-47.0); HEMOGLOBIN 11.4 g/dL (12.0-16.0); LYMPHOCYTES # (AUTO) 0.6 X10^3/uL (1.3-2.9); LYMPHOCYTES % (AUTO) 3.9 % (21.0-51.0); MEAN CORPUSCULAR HEMOGLOBIN 28.6 pg (27.0-34.0); MEAN CORPUSCULAR HGB CONC 33.7 g/dL (33.0-35.0); MEAN CORPUSCULAR VOLUME 84.8 fL (80.0-100.0); MEAN PLATELET VOLUME 8.1 fL (7.4-11.0); MONOCYTES # (AUTO) 0.4 x10^3/uL (0.3-0.8); NEUTROPHILS # (AUTO) 13.7 x10^3/uL (2.2-4.8); NEUTROPHILS % (AUTO) 93.1 % (42.0-75.0); RED BLOOD COUNT 3.98 X10^6/uL (3.5-5.4); RED CELL DISTRIBUTION WIDTH 13.8 % (11.6-16.5); WHITE BLOOD COUNT 14.7 X10^3/uL (3.6-10.0)
[2021-10-14] MEDS: FORTAZ or TAZICEF VIAL INJ 1 G in NS 100 ML IV 100 ML IV SCH (05:19)
[2021-10-14] MEDS: SOLU-Medrol 40 MG VIAL IVP SCH (05:20)
[2021-10-14 05:25] LABS: ALANINE AMINOTRANSFERASE 34 Units/L (12-78); ALBUMIN 2.1 g/dL (3.4-5.0); ALKALINE PHOSPHATASE 62 Units/L (46-116); ASPARTATE AMINO TRANSFERASE 21 Units/L (15-37); BLOOD UREA NITROGEN 16 mg/dL (7-18); CALCIUM 7.9 mg/dL (8.5-10.1); CARBON DIOXIDE 24.3 mmol/L (21-32); CHLORIDE 104 mmol/L (98-107); COR CA(FOR HYPOALB) 9.4 mg/dL (8.5-10.1); COR NA(FOR HYPERGLY) 137 mmol/L (136-145); CREATININE 0.93 mg/dL (0.55-1.02); SODIUM 135 mmol/L (136-145); TOTAL PROTEIN 4.9 g/dL (6.4-8.2); eGFR NON BLACK RACES > 60 (>60)
[2021-10-14 05:39] LABS: PLATELET MORPHOLOGY COMMENT NORMAL (NORMAL)
--- NOTE | 2021-10-14 06:16 | RAD ---
HISTORYSOB HX: HTN SX: HYSTERECTOMYSTUDYCHEST, 1 [id number] trachea is midline. The cardiac silhouette is unremarkable. Patchy right lung infiltrate with area of increased opacification in the perihilar region unchanged. The left lung is clear peer the bony thorax is unremarkable.IMPRESSIONStable portable chest.Electronically signed by: Rhett Rasmussen (Oct 14, 2021 06:16:51)
--- NOTE | 2021-10-14 08:33 | PCM.PROG ---
Progress Note - Progress Note for Day of Date of Exam: 10/13/21 - Subjective Subjective: WAS ADMITTED FOR TREATMENT OF PNEUMONIA, LARGE PLEURAL EFFUSION, MULTIPLE LUNG NODULES ON CT, SHORTNESS OF BREATH, AND HYPONATREMIA. THORACENTESIS WAS PERFORMED ON THURSDAY. TODAY, SHE IS ALERT AND ORIENTED, LYING IN BED ON MORNING ROUNDS. SHE CONTINUES WITH COMPLAINTS OF COUGH, MILD SHORTNESS OF BREATH, AND RIGHT SIDE TENDERNESS AROUND THE LUNG, BUT REPORTS MODERATE IMPROVEMENT SINCE THORACENTESIS. SHE IS ABLE TO TAKE DEEP BREATHS AND IS NO LONGER REQUIRING THE USE OF OXYGEN. ON EXAMINATION, HEART IS REGULAR IN RATE AND RHYTHM. BILATERAL LUNGS NOTED WITH DIMINISHED LUNG SOUNDS THROUGHOUT. ABDOMEN IS ROUND, SOFT, AND NON-TENDER WITH NORMAL BOWEL SOUNDS NOTED IN ALL QUADRANTS. HER VITALS THIS MORNING ARE: 97.8-85-18-95%-105/56. LABS WERE OBTAINED. WBC 22.7, HGB 12.2, HCT 36.2, SODIUM 133, POTASSIUM 4.4, BUN 13, CREATININE 0.88, GLUCOSE 200, CALCIUM 8.1, CRP 45.10, BNP 127, TOTAL PROTEIN 5.4, ALBUMIN 2.3. BLOOD CULTURES AND THORACIC FLUID CULTURES ARE PENDING. RESPIRATORY AIT PANEL IS ALSO PENDING. CHEST XRAY WAS OBTAINED AND REVEALED: The trachea is midline. The cardiac silhouette is unremarkable. Right perihilar airspace disease unchanged. The left lung is clear no pneumothorax. The bony thorax is unremarkable. SHE IS CURRENTLY RECEIVING NORMAL SALINE AT 50 ML/HR, FORTAZ 1G IV Q8H, LEVAQUIN 500MG IV DAILY, SOLU-MEDROL 80MG IV Q8H, ROBITUSSIN DM 10ML PO QID, PULMICORT NEBS BID, XOPENEX NEBS Q6H, LOVENOX 40MG SC DAILY, ZIAC 1 TABLET DAILY, AND THE POTASSIUM PROTOCOL. WE WILL CONTINUE WITH CURRENT PLAN OF CARE TODAY. OTHERWISE, WE PLAN TO FOLLOW UP WITH AM LABS AND CHEST XRAY AND CONTINUE TO MONITOR. TIME SPENT ON CLINICAL ASSESSMENT, REVIEWING LABS AND IMAGING, DECISION MAKING, AND DOCUMENTATION GREATER THAN 45 MINUTES. - Past Medical Family Social History Past Med/Fam/Surg Hx: No changes since H&P Allergies: Allergies codeine Allergy (Verified 10/10/21 08:25) - Review of Systems ROS: No change since H&P - Vital Signs and I&O's Vital Signs: Temperature 97.6 F Pulse Rate [Left Radial] 89 Pulse Rate 89 Respiratory Rate 18 Blood Pressure [Right Arm] 127/59 Blood Pressure [Left Arm] 126/58 Blood Pressure 148/67 O2 Sat by Pulse Oximetry 96 Intake and Output: Intake & Output 10/11/21 10/12/21 10/13/21 10/14/21 11:59 11:59 11:59 11:59 Intake Total 1380 / 1380 1610 / 1610 1620 / 1620 3431 / 3431 Output Total 1500 / 1500 Balance 1380 / 1380 110 / 110 1620 / 1620 3431 / 3431 - Physical Exam Oriented: Normal Eyes: Normal Ear: Normal Nose: Normal Throat: Normal Respiratory: Generalized, Diminished Cardiovascular: Normal : Normal Auscultation: Bowel Sounds: Normal Tenderness: Normal Skin: Normal Musculoskeletal: Normal Psychiatric: Normal Mood Description: Calm Affect: Normal Speech Pattern: Clear, Appropriate - Laboratory and Diagnostics Result Diagrams: 10/14/21 04:50 10/14/21 04:50 Labs: 10/11/21 16:30 Thoracic Fluid - Preliminary 10/10/21 08:41 Blood Blood Culture - Preliminary 10/10/21 08:39 Blood Blood Culture - Preliminary Laboratory WBC 14.7 X10^3/uL (3.6-10.0) H D 10/14/21 04:50 RBC 3.98 X10^6/uL (3.5-5.4) 10/14/21 04:50 Hgb 11.4 g/dL (12.0-16.0) L 10/14/21 04:50 Hct 33.8 % (36.0-47.0) L 10/14/21 04:50 MCV 84.8 fL (80.0-100.0) 10/14/21 04:50 MCH 28.6 pg (27.0-34.0) 10/14/21 04:50 MCHC 33.7 g/dL (33.0-35.0) 10/14/21 04:50 RDW 13.8 % (11.6-16.5) 10/14/21 04:50 Plt Count 287 X10^3/uL (150.0-450.0) 10/14/21 04:50 Plt Count Comment Adequate (ADEQUATE) 10/14/21 04:50 MPV 8.1 fL (7.4-11.0) 10/14/21 04:50 Neut % (Auto) 93.1 % (42.0-75.0) H 10/14/21 04:50 Lymph % (Auto) 3.9 % (21.0-51.0) L 10/14/21 04:50 [place] % (Auto) 3.0 % (0.0-13.0) 10/14/21 04:50 Eos % (Auto) 0.0 % (0.9-2.9) L 10/14/21 04:50 Baso % (Auto) 0 % (0.2-1.0) L 10/14/21 04:50 Neut # (Auto) 13.7 x10^3/uL (2.2-4.8) H 10/14/21 04:50 Lymph # (Auto) 0.6 X10^3/uL (1.3-2.9) L 10/14/21 04:50 [place] # (Auto) 0.4 x10^3/uL (0.3-0.8) 10/14/21 04:50 Eos # (Auto) 0.0 x10^3/uL (0.0-0.2) 10/14/21 04:50 Baso # (Auto) 0.0 X10^3/uL (0.0-0.1) 10/14/21 04:50 Absolute Nucleated RBC 0.0 /100WBC 10/14/21 04:50 Total Counted 100 10/14/21 04:50 Neutrophils % (Manual) 92 % (39-76) H 10/14/21 04:50 Band Neutrophils % 3 % (0-10) 10/13/21 04:40 Lymphocytes % (Manual) 5 % (13-43) L 10/14/21 04:50 Monocytes % (Manual) 3 % (4-9) L 10/14/21 04:50 Plt Morphology Comment Normal (NORMAL) 10/14/21 04:50 RBC Morphology Normal (NORMAL) 10/14/21 04:50 D-Dimer 2.88 ug/ml (0.0-0.57) H* 10/10/21 08:39 Sodium 135 mmol/L (136-145) L 10/14/21 04:50 Corrected Sodium 137 mmol/L (136-145) 10/14/21 04:50 Potassium 4.1 mmol/L (3.5-5.1) 10/14/21 04:50 Chloride 104 mmol/L (98-107) 10/14/21 04:50 Carbon Dioxide 24.3 mmol/L (21-32) 10/14/21 04:50 BUN 16 mg/dL (7-18) 10/14/21 04:50 Creatinine 0.93 mg/dL (0.55-1.02) 10/14/21 04:50 Est GFR (MDRD) Af Amer > 60 (>60) 10/14/21 04:50 Est GFR (MDRD) Non-Af > 60 (>60) 10/14/21 04:50 Glucose 193 mg/dL (65-99) H 10/14/21 04:50 POC Glucose (mg/dL) 121 mg/dL (65-99) H 10/10/21 20:55 Lactic Acid 0.8 mmol/L (0.4-2.0) 10/10/21 08:39 Calcium 7.9 mg/dL (8.5-10.1) L 10/14/21 04:50 Corrected Calcium 9.4 mg/dL (8.5-10.1) 10/14/21 04:50 Magnesium 2.7 mg/dL (1.7-2.9) 10/12/21 05:30 Total Bilirubin 0.20 mg/dL (0.2-1.0) 10/14/21 04:50 AST 21 Units/L (15-37) 10/14/21 04:50 ALT 34 Units/L (12-78) 10/14/21 04:50 Alkaline Phosphatase 62 Units/L (46-116) 10/14/21 04:50 Creatine Kinase 65 Units/L (26-192) 10/10/21 08:39 CK-MB (CK-2) 1.3 ng/mL (0-4.0) 10/10/21 08:39 CK/CKMB % Calc 2.0 % (<4) 10/10/21 08:39 Troponin I High Sens 6.5 ng/L (4.0-60.0) 10/10/21 08:39 C-Reactive Protein 19.70 mg/L (0-3.0) H 10/14/21 04:50 B-Natriuretic Peptide 101 pg/mL (0-79) H 10/14/21 04:50 Total Protein 4.9 g/dL (6.4-8.2) L 10/14/21 04:50 Albumin 2.1 g/dL (3.4-5.0) L 10/14/21 04:50 Globulin 2.8 g/dL (2.5-4.5) 10/14/21 04:50 Albumin/Globulin Ratio 0.8 Ratio (1.1-2.1) L 10/14/21 04:50 Lipase 135 Units/L (73-393) 10/10/21 08:39 Specimen Type Clean catch urine 10/10/21 08:29 Urine Color Straw (YELLOW) 10/10/21 08:29 Urine Appearance Clear (CLEAR) 10/10/21 08:29 Urine pH 6.0 (5.0 - 8.0) 10/10/21 08:29 Ur Specific [place] 1.015 (1.000-1.030) 10/10/21 08:29 Urine Protein 1+ (NEGATIVE) 10/10/21 08:29 Urine Glucose (UA) Negative (NEGATIVE) 10/10/21 08:29 Urine Ketones Negative (NEGATIVE) 10/10/21 08:29 Urine Blood 1+ (NEGATIVE) 10/10/21 08:29 Urine Nitrite Negative (NEGATIVE) 10/10/21 08:29 Urine Bilirubin Negative (NEGATIVE) 10/10/21 08:29 Urine Urobilinogen Normal (NORMAL) 10/10/21 08:29 Ur Leukocyte Esterase Negative (NEGATIVE) 10/10/21 08:29 Urine RBC 0-2 /HPF (0-3) 10/10/21 08:29 Urine WBC 0-2 /HPF (0-5) 10/10/21 08:29 Ur Squamous Epith Cells Rare /HPF (NEGATIVE) 10/10/21 08:29 Urine Bacteria Trace /HPF (NEGATIVE) 10/10/21 08:29 Ur Culture Indicated? No/not indicated 10/10/21 08:29 Fluid pH 8.5 10/11/21 16:30 SARS-CoV-2 (PCR) Negative (NEGATIVE) 10/10/21 08:29 Influenza Type A (PCR) Negative (NEGATIVE) 10/10/21 08:29 Influenza Type B (PCR) Negative (NEGATIVE) 10/10/21 08:29 RSV (PCR) Negative (NEGATIVE) 10/10/21 08:29 Resp Viral Panel (PCR) See scanned report 10/11/21 04:29 Cytology Specimen To follow 10/11/21 16:30 - Plan (1) Pneumonia involving right lung Status: Acute Qualifiers: Pneumonia type: due to unspecified organism Lung location: unspecified part of lung Qualified Code(s): J18.9 - Pneumonia, unspecified organism Plan: NS AT 50 ML/HR, FORTAZ 1G IV Q8H, LEVAQUIN 500MG IV DAILY, SOLU-MEDROL 80MG IV Q8H, ROBITUSSIN DM 10ML PO QID, PULMICORT NEBS BID, XOPENEX NEBS Q6H, LOVENOX 40MG SC DAILY, ZIAC 1 TABLET DAILY, AND THE POTASSIUM PROTOCOL. CONSULT FOR THORACENTESIS. (2) Large pleural effusion Status: Acute (3) Multiple lung nodules on CT Status: Acute (4) Shortness of breath Status: Acute (5) Hyponatremia Status: Acute
[2021-10-14] MEDS: FLONASE NASAL SPRAY ENOSTRIL SCH (09:00)
[2021-10-14] MEDS: LEVAQUIN PREMIX IV 500 MG 500 MG/100 ML BAG IV SCH (09:00)
[2021-10-14] MEDS: LOVENOX INJ 40 MG SYR SC SCH (09:00)
[2021-10-14] MEDS: ZIAC 5/6.25 MG PO SCH (09:14)
[2021-10-14] MEDS: PULMICORT NEB TX 0.5 MG NEB SCH (09:39)
[2021-10-14 09:54] VITALS: BP 136/63
[2021-10-17 06:54] LABS: ANTI-NUCLEAR ANTIBODY TEST None Detected (None Detected)
== END 2021-10-14 10:50 | disposition home or self-care (01) | DRG 194 ==
LOC: ER 07:27 → MED/SURG 11:48
PROVIDERS: ADMIT Internal Medicine; ATTEND Internal Medicine
DX: J90 Pleural effusion, not elsewhere classified; R06.02 Shortness of breath; R79.82 Elevated C-reactive protein (CRP); Z20.822 Contact with and (suspected) exposure to COVID-19; I10 Essential (primary) hypertension; R07.89 Other chest pain; E87.1 Hypo-osmolality and hyponatremia; J18.8 Other pneumonia, unspecified organism; B95.7 Other staphylococcus as the cause of diseases classified elsewhere; R91.8 Other nonspecific abnormal finding of lung field

== ENCOUNTER 2021-12-10 06:08 | Inpatient (IN) ==
[2021-12-10 06:24] VITALS: BMI 26.0
--- NOTE | 2021-12-10 06:44 | DR.GENAD ---
HPI Time Seen Time Seen by Provider: 12/10/21 06:42 PCP Primary Care Physician: DR MCARTHUR HPI Comment HPI Comment: PATIENT IS 76YR OLD FEMALE IN ER WITH INCREASING SOB, NONPRODUCTIVE COUGH GENEDRALIZED FATIGUE TIMES 3 WEEKS. DENIES FEVER. HAVING WEAKNESS AND FATIGUE. DENIES FEVER. HISTORY PNEUMONIA AND PLEURAL EFFUSION PREVIOUSLY. Complaint/Symptoms Chief Complaint Doctors Comments: INCREASING SOB AND NONPRODUCTIVE COUGH TIMES WEEKS. Chief Complaint:: PT C/O 3 WEEK HISTORY OF PROGRESSIVELY WORSENING SHORTNESS OF BREATH WITH NONPRODUCTIVE COUGH THAT IS WORSE WITH EXERTION. PT ALSO C/O GENERALIZED FATIGUE AND WEAKNESS. DENIES FEVER COVID-19 Coronavirus risk:travel/contact w/high risk person: No Has patient experienced Coronavirus symptoms: No Nurses notes reviewed Nurses Notes Review: Yes Source History Provided: Patient Mode of Arrival Mode of Arrival: Ambulatory Timing Onset of Chief Complaint: 12/10/21 Came on: Suddenly Duration Duration: Constant Duration: Weeks Location Location: CHEST. Severity Severity: Moderate Modifying Factors Worsens:: EXERTION Improves:: REST. Associated Signs and Symptoms Associated Signs and Symptoms: WEAKNESS AND FATIGUE. Other History Other History: PLUERAL EFFUSION. PMH PMH Past Medical History: Yes Past Medical History: Hypertension Past Medical History Comment: TRIGEMINAL NEURALGIA Past Surgical History: Yes Surgical History: Hysterectomy Family History History of Family Medical Conditions: Yes Family Medical History: Diabetes Mellitus, [place], Coronary Artery Disease and Hypertension Family Medical History Comment: CVA, PADGETTS DISEASE Social History Does patient currently use any type of tobacco product: No Have you used tobacco products in the last 12 months: No Type of Tobacco Use: None Does any household member use tobacco: No Alcohol Use: None Do you use any recreational Drugs:: No Lives With: Family Lives Where: Home Travel Risk Coronavirus risk:travel/contact w/high risk person: No Has patient experienced Coronavirus symptoms: No Infectious screening In the last 2 months have you had wt loss of >10#?: NO Have you had fever, night sweats or hemotysis?: No Have you traveled outside the country in the last 6 months?: No Isolation: Standard ROS Review of Systems Constitutional: See HPI, Weakness and Fatigue; negative Fever Eyes: No Symptoms Reported and See HPI ENTM: See HPI and Nose Congestion; negative Nose Discharge Respiratoy: See HPI, Non-Productive Cough and Short of Breath; negative Wheezing Cardiovascular: No Symptoms Reported, See HPI and Chest Pain Gastrointestinal/Abdominal: No Symptoms Reported and See HPI; negative Abdominal Pain, Diarrhea, Nausea and Vomiting Genitourinary: No Symptoms Reported and See HPI; negative Dysuria Neurological: See HPI and Seizure; negative Headache and Tingling Musculoskeletal: No Symptoms Reported and See HPI; negative Muscle Pain Integumentary: No Symptoms Reported and See HPI; negative Rash and Juandice Hematologic/Lymphatic: No Symptoms Reported, See HPI and Easy Bruising Endocrine: No Symptoms Reported and See HPI; negative Increased Thirst and Increased Urine Psychiatric: No Symptoms Reported and See HPI All Other Systems: Reviewed and Negative PE Vital Signs Vitals: Temperature 98.0 F Pulse Rate 88 Respiratory Rate 22 Blood Pressure [Right Arm] 136/63 Blood Pressure 156/90 O2 Sat by Pulse Oximetry 91 General Limitations: No Limitations General Appearance: Alert and In No Apparent Distress Head Head Exam: Normal Inspection and Atraumatic Eyes Eye exam: Normal Appearance and PERRL; negative Scleral Icterus and Conjunctival Injection ENT ENT Exam: Normal Exam, Normal Oropharynx, Normal External Ear Exam and TM's Normal Bilaterally External Ear Exam: Normal External Inspection; negative Mastoid Tenderness TM/Canal Exam: Bilateral: Normal Nose Exam: Normal Nose Exam Mouth Exam: Normal Inspection; negative Lip Swelling and Tongue Swelling Throat Exam: Normal Inspection; negative Tonsillar Erythema, Tonsillomegaly and Tonsillar Exudate Neck Neck Exam: Normal Inspection and Trachea Midline; negative Tenderness Chest Chest Inspection: Normal Inspection and Symmetric Chest Wall Rise; negative Tenderness Respiratory Respiratory Exam: Normal Lung Sounds Bilat; negative Accessory Muscle Use, Chest Wall Tenderness and Respiratory Distress Respiratory Exam: Bilateral: Rhonchi, Right: Rales and Lower: Rhonchi Cardiovascular Cardiovascular Exam: Regular Rate, Normal Rhythm and Normal Heart Sounds; negative Systolic Murmur and Diastolic Murmur Abdominal Exam Abdominal Exam: Normal Inspection, Normal Bowel Sounds and Soft; negative Tenderness Extremities Extremities Exam: Normal Inspection and Normal Capillary Refill Back Back Exam: Normal Inspection; negative (R) CVA Tenderness and (L) CVA Tenderness Neurologic Neurological Exam: Alert and Oriented X3; negative Motor Sensory Deficit Psychiatric Psychiatric Exam: Normal Affect and Normal Mood Skin Skin Exam: Warm, Dry, Intact and Normal Color MDM Additional Information Additional Information Obtained From: Old Records and Family Differential Diagnosis Differential Diagnosis: PNEMONIA, CHEST PAIN, PLEURAL EFFUSION, SOB, CHF. COURSE Treatment Treatment: SEE ORDERS DONE WHILE PATIENT WAS IN ER. LABS, XRAY AND EKG DISCUSSED WITH PATIENT AND HER . SHE WILL BE ADMITTED TO HOSPITAL FOR FURTHER MANAGEMENT. Consultation Consultation Comments: DISCUSSED PATIENT WITH DR. MCARTHUR. HE WILL ADMIT PATIENT. Education/Counseling Education/Counseling: Patient Educated On: Diagnosis and Needs for Follow Up ROR Labs Reviewed Laboratory Results Reviewed?: Yes Result Diagrams: 12/11/21 03:52 12/11/21 03:52 Laboratory: WBC 6.7 X10^3/uL (3.6-10.0) 12/10/21 06:59 RBC 4.66 X10^6/uL (3.5-5.4) 12/10/21 06:59 Hgb 13.1 g/dL (12.0-16.0) 12/10/21 06:59 Hct 38.7 % (36.0-47.0) 12/10/21 06:59 MCV 82.9 fL (80.0-100.0) 12/10/21 06:59 MCH 28.0 pg (27.0-34.0) 12/10/21 06:59 MCHC 33.8 g/dL (33.0-35.0) 12/10/21 06:59 RDW 15.8 % (11.6-16.5) 12/10/21 06:59 Plt Count 221 X10^3/uL (150.0-450.0) 12/10/21 06:59 MPV 8.0 fL (7.4-11.0) 12/10/21 06:59 Neut % (Auto) 66.8 % (42.0-75.0) 12/10/21 06:59 Lymph % (Auto) 22.4 % (21.0-51.0) 12/10/21 06:59 Hubbard % (Auto) 8.1 % (0.0-13.0) 12/10/21 06:59 Eos % (Auto) 1.5 % (0.9-2.9) 12/10/21 06:59 Baso % (Auto) 1.2 % (0.2-1.0) H 12/10/21 06:59 Neut # (Auto) 4.4 x10^3/uL (2.2-4.8) 12/10/21 06:59 Lymph # (Auto) 1.5 X10^3/uL (1.3-2.9) 12/10/21 06:59 Hubbard # (Auto) 0.5 x10^3/uL (0.3-0.8) 12/10/21 06:59 Eos # (Auto) 0.1 x10^3/uL (0.0-0.2) 12/10/21 06:59 Baso # (Auto) 0.1 X10^3/uL (0.0-0.1) 12/10/21 06:59 Absolute Nucleated RBC 0.0 /100WBC 12/10/21 06:59 Sample Site Rrad 12/10/21 07:04 ABG pH 7.480 (7.35-7.45) H 12/10/21 07:04 ABG pCO2 38.0 mmHg (35.0-45.0) 12/10/21 07:04 ABG pO2 49.0 mmHg (80.0-100.0) L* 12/10/21 07:04 ABG HCO3 28.3 mmol/L (22-26) H 12/10/21 07:04 ABG O2 Saturation 87.0 % (90-100) L 12/10/21 07:04 ABG Base Excess 4.6 mmol/L (-2.0-2.0) H 12/10/21 07:04 Ludwig Test Pos 12/10/21 07:04 A-a Gradient 53.0 mmHg 12/10/21 07:04 FiO2 21.0 12/10/21 07:04 Blood Gas Comments Pt junior well elj cdn 12/10/21 07:04 Sodium 136 mmol/L (136-145) 12/10/21 06:59 Corrected Sodium 137 mmol/L (136-145) 12/10/21 06:59 Potassium 3.9 mmol/L (3.5-5.1) 12/10/21 06:59 Chloride 100 mmol/L (98-107) 12/10/21 06:59 Carbon Dioxide 27.9 mmol/L (21-32) 12/10/21 06:59 BUN 9 mg/dL (7-18) 12/10/21 06:59 Creatinine 0.91 mg/dL (0.55-1.02) 12/10/21 06:59 Est GFR (MDRD) Af Amer > 60 (>60) 12/10/21 06:59 Est GFR (MDRD) Non-Af > 60 (>60) 12/10/21 06:59 Glucose 131 mg/dL (65-99) H 12/10/21 06:59 Calcium 8.7 mg/dL (8.5-10.1) 12/10/21 06:59 Corrected Calcium 9.5 mg/dL (8.5-10.1) 12/10/21 06:59 Total Bilirubin 0.50 mg/dL (0.2-1.0) 12/10/21 06:59 AST 24 Units/L (15-37) 12/10/21 06:59 ALT 17 Units/L (12-78) 12/10/21 06:59 Alkaline Phosphatase 74 Units/L (46-116) 12/10/21 06:59 Creatine Kinase 55 Units/L (26-192) 12/10/21 06:59 CK-MB (CK-2) 1.5 ng/mL (0-4.0) 12/10/21 06:59 CK/CKMB % Calc 2.7 % (<4) 12/10/21 06:59 Troponin I High Sens 11.6 ng/L (4.0-60.0) 12/10/21 06:59 B-Natriuretic Peptide 48.4 pg/mL (0-79) 12/10/21 06:59 Total Protein 6.1 g/dL (6.4-8.2) L 12/10/21 06:59 Albumin 3.0 g/dL (3.4-5.0) L 12/10/21 06:59 Globulin 3.1 g/dL (2.5-4.5) 12/10/21 06:59 Albumin/Globulin Ratio 1.0 Ratio (1.1-2.1) L 12/10/21 06:59 SARS-CoV-2 (PCR) Negative (NEGATIVE) 12/10/21 07:14 Influenza Type A (PCR) Negative (NEGATIVE) 12/10/21 07:14 Influenza Type B (PCR) Negative (NEGATIVE) 12/10/21 07:14 RSV (PCR) Negative (NEGATIVE) 12/10/21 07:14 XRAY XRAY Interpreted by: Radiologist (REPORT NOTED.) and Self EKG Rate: 81 [place]: Normal Rhythm: NSR Block: None Hypertrophy: None ST: Nonsp Opioid Opioid Risk Tool Age (Nabil box if 16-45): No History of Preadolescent Sexual Abuse: No Total: 0 Total Score Risk Category: Low Risk Copyright: [facility] predicting aberrant behaviors Diagnosis Discharge Problem: Pleural effusion, right, SOB (shortness of breath), Hypoxia Pneumonia Qualifiers: Pneumonia type: due to unspecified organism Laterality: right Lung location: upper lobe of lung Qualified Code(s): J18.9 - Pneumonia, unspecified organism Instructions Forms: Excuse From Work or School Precautions for COVID19 [facility] Social Distancing
[2021-12-10 07:07] LABS: BASOPHILS # (AUTO) 0.1 X10^3/uL (0.0-0.1); BASOPHILS % (AUTO) 1.2 % (0.2-1.0); EOSINOPHILS # (AUTO) 0.1 x10^3/uL (0.0-0.2); EOSINOPHILS % (AUTO) 1.5 % (0.9-2.9); HEMATOCRIT 38.7 % (36.0-47.0); HEMOGLOBIN 13.1 g/dL (12.0-16.0); LYMPHOCYTES # (AUTO) 1.5 X10^3/uL (1.3-2.9); LYMPHOCYTES % (AUTO) 22.4 % (21.0-51.0); MEAN CORPUSCULAR HGB CONC 33.8 g/dL (33.0-35.0); MEAN CORPUSCULAR VOLUME 82.9 fL (80.0-100.0); MONOCYTES # (AUTO) 0.5 x10^3/uL (0.3-0.8); MONOCYTES % (AUTO) 8.1 % (0.0-13.0); NEUTROPHILS # (AUTO) 4.4 x10^3/uL (2.2-4.8); NEUTROPHILS % (AUTO) 66.8 % (42.0-75.0); RED BLOOD COUNT 4.66 X10^6/uL (3.5-5.4); RED CELL DISTRIBUTION WIDTH 15.8 % (11.6-16.5); WHITE BLOOD COUNT 6.7 X10^3/uL (3.6-10.0)
[2021-12-10 07:08] LABS: ABG BASE EXCESS 4.6 mmol/L (-2.0-2.0); ABG HCO3 28.3 mmol/L (22-26)
[2021-12-10 07:09] LABS: ABG ALLEN TEST POS
--- NOTE | 2021-12-10 07:14 | RAD ---
HISTORYHypertension, shortness of breathSTUDYChest AP [id number]/04/2022 chest x-ray, CTA chest 10/10/2021FINDINGSHeart size difficult to assess due to obscuration of the right heart border by a large right pleural effusion which obscures a large portion of the right lower lobe and the right middle lobe and right hilum. Underlying infiltrate, atelectasis, or even neoplasm cannot be excluded. Right hilar adenopathy not excluded. Perihilar interstitial infiltrate is present throughout the right upper lobe. The left lung is clear.IMPRESSIONInterval development of a large right pleural effusion obscuring the right middle lobe, a large portion of the right lower lobe, and right hilum. Chest CT WITH CONTRAST should be considered as a follow-up to the CTA chest of 10/10/2021 which demonstrated lung nodules and mediastinal hilar adenopathy.Perihilar infiltrate right upper lobeLeft lung clear.Electronically signed by: KAREN MUÑIZ (December 10, 2021 07:14:02)
[2021-12-10 07:30] LABS: ALANINE AMINOTRANSFERASE 17 Units/L (12-78); ALKALINE PHOSPHATASE 74 Units/L (46-116); ASPARTATE AMINO TRANSFERASE 24 Units/L (15-37); BLOOD UREA NITROGEN 9 mg/dL (7-18); CALCIUM 8.7 mg/dL (8.5-10.1); CARBON DIOXIDE 27.9 mmol/L (21-32); CHLORIDE 100 mmol/L (98-107); CKMB % 2.7 % (<4); COR CA(FOR HYPOALB) 9.5 mg/dL (8.5-10.1); COR NA(FOR HYPERGLY) 137 mmol/L (136-145); CREATINE KINASE 55 Units/L (26-192); CREATINE KINASE MB 1.5 ng/mL (0-4.0); CREATININE 0.91 mg/dL (0.55-1.02); SODIUM 136 mmol/L (136-145); TOTAL PROTEIN 6.1 g/dL (6.4-8.2); eGFR NON BLACK RACES > 60 (>60)
[2021-12-10] MEDS ORDERED: ZOSYN VIAL 3.375 GRAMS 3.375 G in NS 100 ML IV 100 ML IV ONE (07:39)
[2021-12-10] MEDS ORDERED: ZOSYN VIAL 3.375 GRAMS IV ONE (07:49)
[2021-12-10] MEDS ORDERED: NS 100 ML IV 100 ML ONE ×2 (07:50→20:19)
[2021-12-10] MEDS ORDERED: NS 100 ML IV 0 ML ONE (08:24)
--- NOTE | 2021-12-10 09:17 | CT ---
HISTORYShortness of breathSTUDYCT chest with contrastTechnique: Axial post-contrast images with coronal and sagittal reformats. Dose reduction procedures were used with mA/kv adjusted for body size.[id number]/31/2022FINDINGSExamina tion of the mediastinum demonstrated increasing retrocaval pretracheal and AP window lymphadenopathy when compared with the prior examination. There does also appear to be some abnormal soft tissue within the right hilar and suprahilar regions contributing to some narrowing of the airways to a portion of the right upper lobe. There is distal infiltrate in the apical segment of the right upper lobe with consolidation and atelectasis in the remainder of the right upper lobe. Additionally there is a large right pleural effusion with some underlying right middle and right lower lobe atelectasis. Bronchoscopy may be indicated in order to exclude an endobronchial neoplasm. No left hilar adenopathy is identified. No left pleural effusion is identified. There is also diffuse involvement of the aerated portions of the right upper lobe and left lung with multiple (too many to count) tiny nodules which appear more numerous than on the prior examination. Metastatic disease is certainly possible. Pulmonary consultation is recommended.IMPRESSIONProgression of the previously noted mediastinal lymphadenopathy and abnormal soft tissue in the right hilar region when compared with the prior examination.Progression of the multiple bilateral (too many to count) less than 6 mm pulmonary nodules which could be infectious or metastatic in origin.Large right pleural effusion with underlying atelectatic change in portions of the right upper lobe, right middle lobe and right lower lobe.Recommendation: Pulmonary consultation with consideration for bronchoscopy. Neoplasm must be excluded.Electronically signed by: KAREN MUÑIZ (December 10, 2021 09:15:11)
[2021-12-10] MEDS: ZOSYN VIAL 3.375 GRAMS 3.375 G in NS 100 ML IV 100 ML IV SCH ×3 (10:35→21:55)
[2021-12-10] MEDS ORDERED: SALINE 3% 15 ML NEB TX ONE (11:49)
[2021-12-10] MEDS ORDERED: DUONEB 0.5 MG/3 MG (3 mL) NEB ONE (11:49)
[2021-12-10] MEDS: DUONEB 0.5 MG/3 MG (3 mL) NEB SCH ×3 (11:50→20:10)
[2021-12-10] MEDS ORDERED: SALINE 3% 15 ML NEB TX NEB ONE (11:50)
[2021-12-10] MEDS: VSL#3 PO SCH (12:14)
[2021-12-10] MEDS ORDERED: NS 250 ML IV 250 ML IV SCH (14:30)
--- NOTE | 2021-12-10 16:15 | DR.H&P ---
H&P - History & Physical for Day of: H&P Date: 12/10/21 - Chief Complaint Chief Complaint: SHORTNESS OF BREATH, NONPRODUCTIVE COUGH - History of Present Illness History of Present Illness: IS A 76 YEAR OLD PATIENT OF OURS. SHE PRESENTED TO THE ER WITH COMPLAINTS OF PROGRESSIVELY WORSENING SHORTNESS OF BREATH WITH A NONPRODUCTIVE COUGH THAT IS WORSE ON EXERTION. SHE ALSO COMPLAINS OF GENERALIZED FATIGUE AND WEAKNESS. SHE DENIES FEVER. SYMPTOMS HAVE WORSENED FOR THE PAST SEVERAL WEEKS. PATIENT HAS A HISTORY OF SIMILAR SYMPTOMS. SHE WAS HOSPITALIZED FROM 10/10/21-10/14/21 FOR TREATMENT OF PNEUMONIA AND A LARGE PLEURAL EFFUSION. A THORACENTESIS WAS DONE AT THAT TIME. CYTOLOGY WAS NEGATIVE FOR MALIGNANCY. MICROBIOLOGY OF THRACIC FLUID DID GROW OUT STAPHYLOCOCCUS HAEMOLYTICUS AND STAPHYLOCOCCUS WARNERI. SHE WAS TREATED WITH CIPRO AT THAT TIME AND SYMPTOMS IMPROVED. ON ARRIVAL TODAY, VITALS WERE 98.0-88-22-91%-156/90. LABS WERE OBTAINED. WBC 6.7, RBC 4.66, HGB 13.1, HCT 38.7, SODIUM 136, POTASSIUM 3.9, CHLORIDE 100, CARBON DIOXIDE 27.9, BUN 9, CREATININE 0.91, GLUCOSE 131, CALCIUM 8.7, AST 24, ALT 17, ALK PHOS 74, TOTAL PROTEIN 6.1, BNP 48.4, TOTAL PROTEIN 6.1. COVID-19, INFLUENZA, AND RSV WERE NEGATIVE. BLOOD CULTURES WERE SET UP. A CHEST XRAY WAS OBTAINED AND REVEALED: Interval development of a large right pleural effusion obscuring the right middle lobe, a large portion of the right lower lobe, and right hilum. Chest CT WITH CONTRAST should be considered as a follow-up to the CTA chest of 10/10/2021 which demonstrated lung nodules and mediastinal hilar adenopathy. Perihilar infiltrate right upper lobe. Left lung clear. A CHEST CT WITH CONTRAST WAS THEN OBTAINED AND REVEALED: Progression of the previously noted mediastinal lymphadenopathy and abnormal soft tissue in the right hilar region when compared with the prior examination. Progression of the multiple bilateral (too many to count) less than 6 mm pulmonary nodules which could be infectious or metastatic in origin. Large right pleural effusion with underlying atelectatic change in portions of the right upper lobe, right middle lobe and right lower lobe. Recommendation: Pulmonary consultation with consideration for bronchoscopy. Neoplasm must be excluded. EKG OBTAINED AND REVEALED: NSR WITH HR 81. IN THE ER, SHE WAS GIVEN ZOSYN 3.375G IV X 1. SHE WAS ADMITTED FOR RIGHT UPPER LOBE PNEUMONIA AND RIGHT SIDED PLEURAL EFFUSION. WE WILL START NORMAL SALINE AT KVO, ZOSYN 3.375G IV TID, LEVAQUIN 500MG IV DAILY, DUONEBS TID, PULMICORT NEBS BID, AND VSL 2 CAPS DAILY. WE WILL CONSULT WITH TO POSSIBLY REPEAT THE THORACENTESIS. 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 OTHERWISE, WE PLAN TO FOLLOW-UP WITH AM LABS AND CHEST XRAY AND CONTINUE TO MONITOR. TIME SPENT ON CLINICAL ASSESSMENT, REVIEWING LABS AND IMAGING, DECISION MAKING, AND DOCUMENTATION GREATER THAN 75 MINUTES. - Past Medical History Past Medical History: Hypertension Additional Medical History: TRIGEMINAL NEURALGIA - Past Surgical History Surgical History: Hysterectomy - Family History Family Medical History: Diabetes Mellitus, [place], Coronary Artery Disease, Hypertension - Social History Does patient currently use any type of tobacco product: No Have you used tobacco products in the last 12 months: No Type of Tobacco Use: None Does any household member use tobacco: No Alcohol Use: None Drug Use: None - Medications Home Medications: codeine Allergy (Verified 12/10/21 09:35) CONTINUE taking the following medications baclofen 10 mg PO TID PRN 12/10/21 [History] - Review of Systems Constitutional: Weakness Eyes: No Symptoms Reported ENT: No Symptoms Reported Respiratory: Cough, Shortness of Breath, SOB with Excertion Cardiovascular: No Symptoms Reported Gastrointestinal: No Symptoms Reported Genitourinary: No Symptoms Reported Musculoskeletal: No Symptoms Reported Skin: No Symptoms Reported Neurological: Weakness - Physical Exam Vital Signs: Temperature 98.0 F Pulse Rate [Right Brachial] 80 Pulse Rate 83 Respiratory Rate 18 Blood Pressure [Right Arm] 152/65 Blood Pressure 156/90 O2 Sat by Pulse Oximetry 95 Oriented: Normal Eyes: Normal Ear: Normal Nose: Normal Throat: Normal Respiratory: Diminished Throughout Cardiovascular: Normal : Normal Auscultation: Bowel Sounds: Normal Palpation: Normal Tenderness: Normal Skin: Normal Musculoskeletal: Normal Psychiatric: Normal Mood Description: Calm Affect: Normal Speech Pattern: Clear - Assessment/Plan (1) Pneumonia involving right lung Qualifiers: Pneumonia type: due to unspecified organism Lung location: unspecified part of lung Qualified Code(s): J18.9 - Pneumonia, unspecified organism Status: Acute Plan: ADMIT, SUPPLEMETAL OXYGEN, NORMAL SALINE AT KVO, ZOSYN 3.375G IV TID, LEVAQUIN 500MG IV DAILY, DUONEBS TID, PULMICORT NEBS BID, AND VSL 2 CAPS DAILY. (2) Large pleural effusion Status: Acute Plan: CONSULT FOR POSSIBLE THORACENTESIS, IV ANTIBIOTICS (3) Shortness of breath Status: Acute (4) Multiple lung nodules on CT Status: Acute (5) Hypertension Qualifiers: Hypertension type: primary hypertension Qualified Code(s): I10 - Essential (primary) hypertension Status: Chronic - Allergies Allergies/Adverse Reactions: Allergies Allergy/AdvReac Type Severity Reaction Status Date / Time codeine Allergy Verified 12/10/21 09:35
[2021-12-10] MEDS: LEVAQUIN PREMIX IV 500 MG 500 MG/100 ML BAG IV SCH (18:49)
--- NOTE | 2021-12-10 18:54 | RAD ---
EXAM: CHEST X-RAYHISTORY: Right pleural effusion.TECHNIQUE: AP CXR dated December 10, 2021 at 5:20 PM.COMPARISON: CXR dated December 10, 2021 at 7 AM.FINDINGS:The heart size and mediastinum are within normal limits. The visualized bony structures are within normal limits.There is mild prominence of the bronchopulmonary markings; DDX includes mild noncardiogenic pulmonary congestion, bronchitis, and mild interstitial pneumonia in the appropriate clinical setting. Clinical correlation is advised.There is focal parenchymal consolidation in the right middle lung zone in keeping with acute bronchopneumonia in the appropriate clinical setting. There is minimal blunting of the right costophrenic angle in keeping with a small right pleural effusion with probable right basilar atelectasis. No pneumothorax is seen.IMPRESSION:1. Mild prominence of the bronchopulmonary markings (stable); DDX includes mild noncardiogenic pulmonary congestion, bronchitis, and mild interstitial pneumonia in the appropriate clinical setting.2. Focal parenchymal consolidation in the right middle lung zone in keeping with focal atelectasis and/or acute bronchopneumonia in the appropriate clinical setting (significantly improved appearance compared with the earlier exam).3. Minimal blunting of the right costophrenic angle in keeping with a small right pleural effusion (significantly improved compared with the previous exam, suspicious for interval thoracentesis).4. Recommend clinical correlation and appropriate follow-up x-ray evaluation to ensure interval clearance as clinically warranted.Electronically signed by: Kamlesh Donovan (December 10, 2021 18:52:44)
[2021-12-10] MEDS ORDERED: PULMICORT NEB TX 0.5 MG NEB ONE (19:06)
[2021-12-10] MEDS: NS 1,000 ML IV 1,000 ML IV SCH (20:07)
[2021-12-10] MEDS: PULMICORT NEB TX 0.5 MG NEB SCH (20:10)
[2021-12-10 21:02] LABS: TOT VOL 900 mL
[2021-12-10 21:12] LABS: GLUCOSE,PLEURAL FLUID 134
[2021-12-10 21:47] LABS: MONOCYTES,PLEURAL FLUID 78 %
[2021-12-10] MEDS ORDERED: ATIVAN INJ 2 MG VIAL ONE (21:59)
[2021-12-10] MEDS: ATIVAN INJ 2 MG VIAL IVP PRN (22:15)
[2021-12-11 04:46] LABS: BASOPHILS % (AUTO) 0.4 % (0.2-1.0); EOSINOPHILS # (AUTO) 0.1 x10^3/uL (0.0-0.2); EOSINOPHILS % (AUTO) 1.8 % (0.9-2.9); HEMATOCRIT 33.7 % (36.0-47.0); HEMOGLOBIN 11.6 g/dL (12.0-16.0); LYMPHOCYTES # (AUTO) 1.5 X10^3/uL (1.3-2.9); LYMPHOCYTES % (AUTO) 21.9 % (21.0-51.0); MEAN CORPUSCULAR HEMOGLOBIN 28.7 pg (27.0-34.0); MEAN CORPUSCULAR HGB CONC 34.5 g/dL (33.0-35.0); MEAN CORPUSCULAR VOLUME 83.1 fL (80.0-100.0); MEAN PLATELET VOLUME 8.2 fL (7.4-11.0); MONOCYTES # (AUTO) 0.6 x10^3/uL (0.3-0.8); MONOCYTES % (AUTO) 7.9 % (0.0-13.0); NEUTROPHILS # (AUTO) 4.8 x10^3/uL (2.2-4.8); RED BLOOD COUNT 4.06 X10^6/uL (3.5-5.4)
[2021-12-11] MEDS: ZOSYN VIAL 3.375 GRAMS 3.375 G in NS 100 ML IV 100 ML IV SCH ×3 (05:02→22:00)
[2021-12-11 05:03] LABS: ALANINE AMINOTRANSFERASE 12 Units/L (12-78); ALBUMIN 2.3 g/dL (3.4-5.0); ALKALINE PHOSPHATASE 57 Units/L (46-116); ASPARTATE AMINO TRANSFERASE 16 Units/L (15-37); BLOOD UREA NITROGEN 15 mg/dL (7-18); CARBON DIOXIDE 28.3 mmol/L (21-32); CHLORIDE 104 mmol/L (98-107); COR CA(FOR HYPOALB) 9.4 mg/dL (8.5-10.1); COR NA(FOR HYPERGLY) 138 mmol/L (136-145); SODIUM 137 mmol/L (136-145); TOTAL PROTEIN 4.9 g/dL (6.4-8.2); eGFR NON BLACK RACES > 60 (>60)
[2021-12-11] MEDS: DUONEB 0.5 MG/3 MG (3 mL) NEB SCH ×3 (05:25→21:00)
--- NOTE | 2021-12-11 05:58 | RAD ---
PROCEDURE: Chest X-ray 1 View .HISTORY: Pleural effusion with pneumonia and dyspnea.TECHNIQUE: AP portable done at 5:18 a.m..COMPARISON: 12/10/2021.TECHNICAL QUALITY: Satisfactory .FINDINGS:Unremarkable cardio mediastinal silhouette and normal central vascularity.Unchanged pneumonia right mid lower lung field. Left lung gu clear. No pleural fluid.IMPRESSION:Unchanged pneumonia on the right.Electronically signed by: Dago Messina (Dec 11, 2021 05:56:58)
[2021-12-11] MEDS: PULMICORT NEB TX 0.5 MG NEB SCH ×2 (08:33→21:00)
[2021-12-11] MEDS: VSL#3 PO SCH (08:42)
[2021-12-11] MEDS: LEVAQUIN PREMIX IV 500 MG 500 MG/100 ML BAG IV SCH (08:42)
[2021-12-11] MEDS: NS 1,000 ML IV 1,000 ML IV SCH ×2 (08:42→23:12)
[2021-12-11] MEDS: LOVENOX INJ 40 MG SYR SC SCH (11:05)
--- NOTE | 2021-12-11 16:53 | DR.PROGNOT ---
Hospital Progress Notes - Progress Note for Day of: Progress Note Date: 12/11/21 - Chief Complaint Chief Complaint: feeling better after thoracentesis . still having cough and moderate SOB from the underlining RT lung infiltrates - Past Medical Family Social History Past Med/Fam/Surg Hx: No changes since H&P Allergies: Allergies codeine Allergy (Verified 12/10/21 09:35) - Review Of Systems ROS: No change since H&P - Vital Signs Vital Signs: Temperature 97.6 F Pulse Rate [Right Brachial] 87 Pulse Rate 96 Respiratory Rate 18 Blood Pressure [Right Arm] 121/60 Blood Pressure 156/90 O2 Sat by Pulse Oximetry 96 - Physical Exam Oriented: Normal Eyes: Normal Ear: Normal Nose: Normal Throat: Normal Respiratory: Right (reduced BS ) Cardiovascular: Normal : Normal GI:Auscultation: Normal GI:Palpation: Normal GI: Tenderness: Normal Skin: Normal Musculoskeletal: Normal Psychiatric: Normal Mood Description: Calm, Angry Affect: Normal Speech Pattern: Clear, Appropriate - Laboratory and Diagnostics Result Diagrams: 12/11/21 03:52 12/11/21 03:52 Labs: 12/10/21 17:19 Pleural Fluid Gram Stain - Final Laboratory WBC 7.0 X10^3/uL (3.6-10.0) 12/11/21 03:52 RBC 4.06 X10^6/uL (3.5-5.4) 12/11/21 03:52 Hgb 11.6 g/dL (12.0-16.0) L 12/11/21 03:52 Hct 33.7 % (36.0-47.0) L 12/11/21 03:52 MCV 83.1 fL (80.0-100.0) 12/11/21 03:52 MCH 28.7 pg (27.0-34.0) 12/11/21 03:52 MCHC 34.5 g/dL (33.0-35.0) 12/11/21 03:52 RDW 16.0 % (11.6-16.5) 12/11/21 03:52 Plt Count 213 X10^3/uL (150.0-450.0) 12/11/21 03:52 MPV 8.2 fL (7.4-11.0) 12/11/21 03:52 Neut % (Auto) 68.0 % (42.0-75.0) 12/11/21 03:52 Lymph % (Auto) 21.9 % (21.0-51.0) 12/11/21 03:52 [place] % (Auto) 7.9 % (0.0-13.0) 12/11/21 03:52 Eos % (Auto) 1.8 % (0.9-2.9) 12/11/21 03:52 Baso % (Auto) 0.4 % (0.2-1.0) 12/11/21 03:52 Neut # (Auto) 4.8 x10^3/uL (2.2-4.8) 12/11/21 03:52 Lymph # (Auto) 1.5 X10^3/uL (1.3-2.9) 12/11/21 03:52 [place] # (Auto) 0.6 x10^3/uL (0.3-0.8) 12/11/21 03:52 Eos # (Auto) 0.1 x10^3/uL (0.0-0.2) 12/11/21 03:52 Baso # (Auto) 0.0 X10^3/uL (0.0-0.1) 12/11/21 03:52 Absolute Nucleated RBC 0.0 /100WBC 12/11/21 03:52 Clot Appearance Negative 12/10/21 17:19 Sample Site Rrad 12/10/21 07:04 ABG pH 7.480 (7.35-7.45) H 12/10/21 07:04 ABG pCO2 38.0 mmHg (35.0-45.0) 12/10/21 07:04 ABG pO2 49.0 mmHg (80.0-100.0) L* 12/10/21 07:04 ABG HCO3 28.3 mmol/L (22-26) H 12/10/21 07:04 ABG O2 Saturation 87.0 % (90-100) L 12/10/21 07:04 ABG Base Excess 4.6 mmol/L (-2.0-2.0) H 12/10/21 07:04 Ludwig Test Pos 12/10/21 07:04 A-a Gradient 53.0 mmHg 12/10/21 07:04 FiO2 21.0 12/10/21 07:04 Blood Gas Comments Pt junior well elj cdn 12/10/21 07:04 Sodium 137 mmol/L (136-145) 12/11/21 03:52 Corrected Sodium 138 mmol/L (136-145) 12/11/21 03:52 Potassium 3.7 mmol/L (3.5-5.1) 12/11/21 03:52 Chloride 104 mmol/L (98-107) 12/11/21 03:52 Carbon Dioxide 28.3 mmol/L (21-32) 12/11/21 03:52 BUN 15 mg/dL (7-18) 12/11/21 03:52 Creatinine 0.90 mg/dL (0.55-1.02) 12/11/21 03:52 Est GFR (MDRD) Af Amer > 60 (>60) 12/11/21 03:52 Est GFR (MDRD) Non-Af > 60 (>60) 12/11/21 03:52 Glucose 131 mg/dL (65-99) H 12/11/21 03:52 Calcium 8.0 mg/dL (8.5-10.1) L 12/11/21 03:52 Corrected Calcium 9.4 mg/dL (8.5-10.1) 12/11/21 03:52 Total Bilirubin 0.30 mg/dL (0.2-1.0) 12/11/21 03:52 AST 16 Units/L (15-37) 12/11/21 03:52 ALT 12 Units/L (12-78) 12/11/21 03:52 Alkaline Phosphatase 57 Units/L (46-116) 12/11/21 03:52 Creatine Kinase 55 Units/L (26-192) 12/10/21 06:59 CK-MB (CK-2) 1.5 ng/mL (0-4.0) 12/10/21 06:59 CK/CKMB % Calc 2.7 % (<4) 12/10/21 06:59 Troponin I High Sens 11.6 ng/L (4.0-60.0) 12/10/21 06:59 B-Natriuretic Peptide 48.4 pg/mL (0-79) 12/10/21 06:59 Total Protein 4.9 g/dL (6.4-8.2) L 12/11/21 03:52 Albumin 2.3 g/dL (3.4-5.0) L 12/11/21 03:52 Globulin 2.6 g/dL (2.5-4.5) 12/11/21 03:52 Albumin/Globulin Ratio 0.9 Ratio (1.1-2.1) L 12/11/21 03:52 Fluid pH 8 12/10/21 17:19 Fluid Polynuclear WBCs 22 % 12/10/21 17:19 Pleural Fluid Volume 900 mL 12/10/21 17:19 Pleural Color Radha 12/10/21 17:19 Pleural Appearance Cloudy 12/10/21 17:19 Pleural WBC 181 Cubic/mm 12/10/21 17:19 Pleural RBC 67474 Cubic/mm 12/10/21 17:19 Pleural Monocytes 78 % 12/10/21 17:19 Pleural Glucose 134 12/10/21 17:19 SARS-CoV-2 (PCR) Negative (NEGATIVE) 12/10/21 07:14 Influenza Type A (PCR) Negative (NEGATIVE) 12/10/21 07:14 Influenza Type B (PCR) Negative (NEGATIVE) 12/10/21 07:14 RSV (PCR) Negative (NEGATIVE) 12/10/21 07:14 Cytology Specimen To follow 12/10/21 17:19 - Assessment and Plan 1: RT plural effusin ( s/p thoracentesis ). RT pneumonia . to repeat chest X Ray in am .. - Problem Patient Problems: Patient Problems Pneumonia involving right lung (Acute) J18.9 Large pleural effusion (Acute) J90 Multiple lung nodules on CT (Acute) R91.8 Shortness of breath (Acute) R06.02 Pleural effusion, right (Acute) J90 SOB (shortness of breath) (Acute) R06.02 Pneumonia (Acute) J18.9 Hypoxia (Acute) R09.02 Hypertension (Chronic) I10
--- NOTE | 2021-12-11 19:46 | PCM.PROG ---
Progress Note - Progress Note for Day of Date of Exam: 12/11/21 - Subjective Subjective: WAS ADMITTED FOR TREATMENT OF PNEUMONIA, LARGE PLEURAL EFFUSION, MULTIPLE LUNG NODULES ON CT, SHORTNESS OF BREATH. THORACENTESIS WAS PERFORMED YESTERDAY. TODAY, SHE IS ALERT AND ORIENTED, LYING IN BED ON MORNING ROUNDS. SHE CONTINUES WITH COMPLAINTS OF SHORTNESS OF BREATH AND RIGHT SIDE TENDERNESS AROUND THE LUNG, BUT REPORTS SOME IMPROVEMENT SINCE THORACENTESIS. SHE IS ABLE TO TAKE DEEP BREATHS. SHE IS CURRENTLY UTILIZING OXYGEN VIA NASAL CANNULA AT 2 LPM. ON EXAMINATION, HEART IS REGULAR IN RATE AND RHYTHM. BILATERAL LUNGS NOTED WITH DIMINISHED LUNG SOUNDS THROUGHOUT. ABDOMEN IS ROUND, SOFT, AND NON-TENDER WITH NORMAL BOWEL SOUNDS NOTED IN ALL QUADRANTS. HER VITALS THIS MO RNING ARE: 98.5-100-20-94%-118/57. LABS WERE OBTAINED. WBC 7.0, RBC 4.06, HGB 11.6, HCT 33.7, SODIUM 137, POTASSIUM 3.7, CHLORIDE 104, BUN 15, CREATININE 0.90, GLUCOSE 131, CALCIUM 8.0, AST 16, ALT 12, ALK PHOS 57, TOTAL PROTEIN 4.9, ALBUMIN 2.3. BLOOD CULTURES AND THORACIC FLUID CULTURES ARE PENDING. CHEST XRAY WAS OBTAINED AND REVEALED: Unchanged pneumonia on the right. SHE IS CURRENTLY RECEIVING NORMAL SALINE AT KVO, ZOSYN 3.375G IV TID, LEVAQUIN 500MG IV DAILY, DUONEBS TID, PULMICORT NEBS BID, AND VSL 2 CAPS DAILY. WE WILL CONTINUE WITH CURRENT PLAN OF CARE TODAY. OTHERWISE, WE PLAN TO FOLLOW UP WITH AM LABS AND CHEST XRAY AND CONTINUE TO MONITOR. TIME SPENT ON CLINICAL ASSESSMENT, REVIEWING LABS AND IMAGING, DECISION MAKING, AND DOCUMENTATION GREATER THAN 45 MINUTES. - Past Medical Family Social History Past Med/Fam/Surg Hx: No changes since H&P Allergies: Allergies codeine Allergy (Verified 12/10/21 09:35) - Review of Systems ROS: No change since H&P - Vital Signs and I&O's Vital Signs: Temperature 98.2 F Pulse Rate [Right Brachial] 93 Pulse Rate 96 Respiratory Rate 18 Blood Pressure [Right Arm] 114/55 Blood Pressure 156/90 O2 Sat by Pulse Oximetry 96 Intake and Output: Intake & Output 12/09/21 12/10/21 12/11/21 12/12/21 11:59 11:59 11:59 11:59 Intake Total 1660 / 1660 624 / 624 Balance 1660 / 1660 624 / 624 - Physical Exam Oriented: Normal Eyes: Normal Ear: Normal Nose: Normal Throat: Normal Respiratory: Right (reduced BS ) Cardiovascular: Normal : Normal Auscultation: Bowel Sounds: Normal Palpation: Normal Tenderness: Normal Skin: Normal Musculoskeletal: Normal Psychiatric: Normal Mood Description: Calm, Angry Affect: Normal Speech Pattern: Clear, Appropriate - Laboratory and Diagnostics Result Diagrams: 12/11/21 03:52 12/11/21 03:52 Labs: 12/10/21 17:19 Pleural Fluid Gram Stain - Final Laboratory WBC 7.0 X10^3/uL (3.6-10.0) 12/11/21 03:52 RBC 4.06 X10^6/uL (3.5-5.4) 12/11/21 03:52 Hgb 11.6 g/dL (12.0-16.0) L 12/11/21 03:52 Hct 33.7 % (36.0-47.0) L 12/11/21 03:52 MCV 83.1 fL (80.0-100.0) 12/11/21 03:52 MCH 28.7 pg (27.0-34.0) 12/11/21 03:52 MCHC 34.5 g/dL (33.0-35.0) 12/11/21 03:52 RDW 16.0 % (11.6-16.5) 12/11/21 03:52 Plt Count 213 X10^3/uL (150.0-450.0) 12/11/21 03:52 MPV 8.2 fL (7.4-11.0) 12/11/21 03:52 Neut % (Auto) 68.0 % (42.0-75.0) 12/11/21 03:52 Lymph % (Auto) 21.9 % (21.0-51.0) 12/11/21 03:52 [place] % (Auto) 7.9 % (0.0-13.0) 12/11/21 03:52 Eos % (Auto) 1.8 % (0.9-2.9) 12/11/21 03:52 Baso % (Auto) 0.4 % (0.2-1.0) 12/11/21 03:52 Neut # (Auto) 4.8 x10^3/uL (2.2-4.8) 12/11/21 03:52 Lymph # (Auto) 1.5 X10^3/uL (1.3-2.9) 12/11/21 03:52 [place] # (Auto) 0.6 x10^3/uL (0.3-0.8) 12/11/21 03:52 Eos # (Auto) 0.1 x10^3/uL (0.0-0.2) 12/11/21 03:52 Baso # (Auto) 0.0 X10^3/uL (0.0-0.1) 12/11/21 03:52 Absolute Nucleated RBC 0.0 /100WBC 12/11/21 03:52 Clot Appearance Negative 12/10/21 17:19 Sample Site Rrad 12/10/21 07:04 ABG pH 7.480 (7.35-7.45) H 12/10/21 07:04 ABG pCO2 38.0 mmHg (35.0-45.0) 12/10/21 07:04 ABG pO2 49.0 mmHg (80.0-100.0) L* 12/10/21 07:04 ABG HCO3 28.3 mmol/L (22-26) H 12/10/21 07:04 ABG O2 Saturation 87.0 % (90-100) L 12/10/21 07:04 ABG Base Excess 4.6 mmol/L (-2.0-2.0) H 12/10/21 07:04 Ludwig Test Pos 12/10/21 07:04 A-a Gradient 53.0 mmHg 12/10/21 07:04 FiO2 21.0 12/10/21 07:04 Blood Gas Comments Pt junior well elj cdn 12/10/21 07:04 Sodium 137 mmol/L (136-145) 12/11/21 03:52 Corrected Sodium 138 mmol/L (136-145) 12/11/21 03:52 Potassium 3.7 mmol/L (3.5-5.1) 12/11/21 03:52 Chloride 104 mmol/L (98-107) 12/11/21 03:52 Carbon Dioxide 28.3 mmol/L (21-32) 12/11/21 03:52 BUN 15 mg/dL (7-18) 12/11/21 03:52 Creatinine 0.90 mg/dL (0.55-1.02) 12/11/21 03:52 Est GFR (MDRD) Af Amer > 60 (>60) 12/11/21 03:52 Est GFR (MDRD) Non-Af > 60 (>60) 12/11/21 03:52 Glucose 131 mg/dL (65-99) H 12/11/21 03:52 Calcium 8.0 mg/dL (8.5-10.1) L 12/11/21 03:52 Corrected Calcium 9.4 mg/dL (8.5-10.1) 12/11/21 03:52 Total Bilirubin 0.30 mg/dL (0.2-1.0) 12/11/21 03:52 AST 16 Units/L (15-37) 12/11/21 03:52 ALT 12 Units/L (12-78) 12/11/21 03:52 Alkaline Phosphatase 57 Units/L (46-116) 12/11/21 03:52 Creatine Kinase 55 Units/L (26-192) 12/10/21 06:59 CK-MB (CK-2) 1.5 ng/mL (0-4.0) 12/10/21 06:59 CK/CKMB % Calc 2.7 % (<4) 12/10/21 06:59 Troponin I High Sens 11.6 ng/L (4.0-60.0) 12/10/21 06:59 B-Natriuretic Peptide 48.4 pg/mL (0-79) 12/10/21 06:59 Total Protein 4.9 g/dL (6.4-8.2) L 12/11/21 03:52 Albumin 2.3 g/dL (3.4-5.0) L 12/11/21 03:52 Globulin 2.6 g/dL (2.5-4.5) 12/11/21 03:52 Albumin/Globulin Ratio 0.9 Ratio (1.1-2.1) L 12/11/21 03:52 Fluid pH 8 12/10/21 17:19 Fluid Polynuclear WBCs 22 % 12/10/21 17:19 Pleural Fluid Volume 900 mL 12/10/21 17:19 Pleural Color Radha 12/10/21 17:19 Pleural Appearance Cloudy 12/10/21 17:19 Pleural WBC 181 Cubic/mm 12/10/21 17:19 Pleural RBC 45689 Cubic/mm 12/10/21 17:19 Pleural Monocytes 78 % 12/10/21 17:19 Pleural Glucose 134 12/10/21 17:19 SARS-CoV-2 (PCR) Negative (NEGATIVE) 12/10/21 07:14 Influenza Type A (PCR) Negative (NEGATIVE) 12/10/21 07:14 Influenza Type B (PCR) Negative (NEGATIVE) 12/10/21 07:14 RSV (PCR) Negative (NEGATIVE) 12/10/21 07:14 Cytology Specimen To follow 12/10/21 17:19 - Plan (1) Pneumonia involving right lung Status: Acute Qualifiers: Pneumonia type: due to unspecified organism Lung location: unspecified part of lung Qualified Code(s): J18.9 - Pneumonia, unspecified organism Plan: ADMIT, SUPPLEMETAL OXYGEN, NORMAL SALINE AT KVO, ZOSYN 3.375G IV TID, LEVAQUIN 500MG IV DAILY, DUONEBS TID, PULMICORT NEBS BID, AND VSL 2 CAPS DAILY. (2) Large pleural effusion Status: Acute Plan: CONSULT FOR POSSIBLE THORACENTESIS, IV ANTIBIOTICS (3) Shortness of breath Status: Acute (4) Multiple lung nodules on CT Status: Acute (5) Status post thoracentesis Status: Acute (6) Hypertension Status: Chronic Qualifiers: Hypertension type: primary hypertension Qualified Code(s): I10 - Essential (primary) hypertension
[2021-12-12 04:41] LABS: BASOPHILS # (AUTO) 0.1 X10^3/uL (0.0-0.1); BASOPHILS % (AUTO) 2.6 % (0.2-1.0); EOSINOPHILS # (AUTO) 0.3 x10^3/uL (0.0-0.2); HEMATOCRIT 32.6 % (36.0-47.0); HEMOGLOBIN 11.1 g/dL (12.0-16.0); LYMPHOCYTES % (AUTO) 20.4 % (21.0-51.0); MEAN CORPUSCULAR HEMOGLOBIN 28.4 pg (27.0-34.0); MEAN CORPUSCULAR VOLUME 83.5 fL (80.0-100.0); MEAN PLATELET VOLUME 8.2 fL (7.4-11.0); MONOCYTES # (AUTO) 0.5 x10^3/uL (0.3-0.8); MONOCYTES % (AUTO) 9.3 % (0.0-13.0); NEUTROPHILS # (AUTO) 3.2 x10^3/uL (2.2-4.8); NEUTROPHILS % (AUTO) 62.7 % (42.0-75.0); RED BLOOD COUNT 3.91 X10^6/uL (3.5-5.4); WHITE BLOOD COUNT 5.1 X10^3/uL (3.6-10.0)
[2021-12-12] MEDS: ZOSYN VIAL 3.375 GRAMS 3.375 G in NS 100 ML IV 100 ML IV SCH ×3 (05:35→21:38)
[2021-12-12] MEDS: DUONEB 0.5 MG/3 MG (3 mL) NEB SCH ×3 (06:04→21:10)
--- NOTE | 2021-12-12 06:38 | RAD ---
HISTORYShortness of breathSTUDYChest AP [id number]/01/2022 chest x-ray, CT chest with contrast 12/10/2021FINDINGSHeart size is normal. No congestive heart failure is noted. Diffuse interstitial infiltrates are present throughout the right lung. There is an area of increased density in the right midlung likely representing the consolidation and atelectasis visualized on the recent chest CT. Previously present right pleural effusion has significantly decreased since the CT examination of 12/10/2021. Left lung appears clear. The tiny lung nodules depicted on the recent chest CT are not well demonstrated on plain film. Bony thorax is unremarkable.IMPRESSIONSignificant decrease right pleural effusionDiffuse interstitial infiltrates throughout the right lungArea of abnormal density in the right midlung likely representing the atelectasis and consolidation better demonstrated on the recent chest CT.Electronically signed by: KAREN MUÑIZ (Dec 12, 2021 06:34:42)
[2021-12-12] MEDS: PULMICORT NEB TX 0.5 MG NEB SCH ×2 (08:58→21:10)
[2021-12-12] MEDS: LEVAQUIN PREMIX IV 500 MG 500 MG/100 ML BAG IV SCH (10:14)
[2021-12-12] MEDS: VSL#3 PO SCH (10:15)
[2021-12-12] MEDS: LOVENOX INJ 40 MG SYR SC SCH (10:16)
[2021-12-12] MEDS ORDERED: LIORESAL PO PRN (12:44)
--- NOTE | 2021-12-12 12:48 | PCM.PROG ---
Progress Note - Progress Note for Day of Date of Exam: 12/12/21 - Subjective Subjective: WAS ADMITTED FOR TREATMENT OF PNEUMONIA, LARGE PLEURAL EFFUSION, MULTIPLE LUNG NODULES ON CT, SHORTNESS OF BREATH. THORACENTESIS WAS PERFORMED ON THURSDAY. TODAY, SHE IS ALERT AND ORIENTED, LYING IN BED ON MORNING ROUNDS. SHE CONTINUES WITH COMPLAINTS OF SHORTNESS OF BREATH AND RIGHT SIDE TENDERNESS AROUND THE LUNG, BUT REPORTS IMPROVEMENT SINCE THORACENTESIS. SHE IS ABLE TO TAKE DEEP BREATHS. SHE IS CURRENTLY UTILIZING OXYGEN VIA NASAL CANNULA AT 2 LPM. ON EXAMINATION, HEART IS REGULAR IN RATE AND RHYTHM. BILATERAL LUNGS NOTED WITH DIMINISHED LUNG SOUNDS THROUGHOUT. ABDOMEN IS ROUND, SOFT, AND NON- TENDER WITH NORMAL BOWEL SOUNDS NOTED IN ALL QUADRANTS. HER VITALS THIS MORNING ARE: 97.8-95-18-95%-120/55. LABS WERE OBTAINED. WBC 5.1, RBC 3.91, HGB 11.1, HCT 32.6, CRP 15.50. BLOOD CULTURES AND THORACIC FLUID CULTURES ARE PENDING. CHEST XRAY WAS OBTAINED AND REVEALED: Significant decrease right pleural effusion. Diffuse interstitial infiltrates throughout the right lung. Area of abnormal density in the right midlung likely representing the atelectasis and consolidation better demonstrated on the recent chest CT. SHE IS CURRENTLY RECEIVING NORMAL SALINE AT KVO, ZOSYN 3.375G IV TID, LEVAQUIN 500MG IV DAILY, DUONEBS TID, PULMICORT NEBS BID, AND VSL 2 CAPS DAILY. HER HOME MEDICATIONS WERE RESUMED. WE WILL CONTINUE WITH CURRENT PLAN OF CARE TODAY. FOLLOWING DISCHARGE, SHE WILL BE REFERRED TO , [employer] [employer]. OTHERWISE, WE PLAN TO FOLLOW UP WITH AM LABS AND CHEST XRAY AND CONTINUE TO MONITOR. TIME SPENT ON CLINICAL ASSESSMENT, REVIEWING LABS AND IMAGING, DECISION MAKING, AND DOCUMENTATION GREATER THAN 45 MINUTES. - Past Medical Family Social History Past Med/Fam/Surg Hx: No changes since H&P Allergies: Allergies codeine Allergy (Verified 12/10/21 09:35) - Review of Systems ROS: No change since H&P - Vital Signs and I&O's Vital Signs: Temperature 97.8 F Pulse Rate [Right Brachial] 98 Pulse Rate 111 Respiratory Rate 20 Blood Pressure [Right Arm] 142/65 Blood Pressure 156/90 O2 Sat by Pulse Oximetry 94 Intake and Output: Intake & Output 0512/11/21 12/12/21 12/13/21 11:59 11:59 11:59 11:59 Intake Total 1660 / 1660 1665 / 1665 Balance 1660 / 1660 1665 / 1665 - Physical Exam Oriented: Normal Eyes: Normal Ear: Normal Nose: Normal Throat: Normal Respiratory: Right (reduced BS ) Cardiovascular: Normal : Normal Auscultation: Bowel Sounds: Normal Tenderness: Normal Skin: Normal Musculoskeletal: Normal Psychiatric: Normal Mood Description: Calm, Angry Affect: Normal Speech Pattern: Clear, Appropriate - Laboratory and Diagnostics Result Diagrams: 12/12/21 04:00 12/11/21 03:52 Labs: 12/10/21 08:00 Blood Blood Culture - Preliminary 12/10/21 07:53 Blood Blood Culture - Preliminary 12/10/21 17:19 Pleural Fluid Gram Stain - Final 12/10/21 17:19 Pleural Fluid - Preliminary Laboratory WBC 5.1 X10^3/uL (3.6-10.0) 12/12/21 04:00 RBC 3.91 X10^6/uL (3.5-5.4) 12/12/21 04:00 Hgb 11.1 g/dL (12.0-16.0) L 12/12/21 04:00 Hct 32.6 % (36.0-47.0) L 12/12/21 04:00 MCV 83.5 fL (80.0-100.0) 12/12/21 04:00 MCH 28.4 pg (27.0-34.0) 12/12/21 04:00 MCHC 34.0 g/dL (33.0-35.0) 12/12/21 04:00 RDW 16.0 % (11.6-16.5) 12/12/21 04:00 Plt Count 192 X10^3/uL (150.0-450.0) 12/12/21 04:00 MPV 8.2 fL (7.4-11.0) 12/12/21 04:00 Neut % (Auto) 62.7 % (42.0-75.0) 12/12/21 04:00 Lymph % (Auto) 20.4 % (21.0-51.0) L 12/12/21 04:00 [place] % (Auto) 9.3 % (0.0-13.0) 12/12/21 04:00 Eos % (Auto) 5.0 % (0.9-2.9) H 12/12/21 04:00 Baso % (Auto) 2.6 % (0.2-1.0) H 12/12/21 04:00 Neut # (Auto) 3.2 x10^3/uL (2.2-4.8) 12/12/21 04:00 Lymph # (Auto) 1.0 X10^3/uL (1.3-2.9) L 12/12/21 04:00 [place] # (Auto) 0.5 x10^3/uL (0.3-0.8) 12/12/21 04:00 Eos # (Auto) 0.3 x10^3/uL (0.0-0.2) H 12/12/21 04:00 Baso # (Auto) 0.1 X10^3/uL (0.0-0.1) 12/12/21 04:00 Absolute Nucleated RBC 0.0 /100WBC 12/12/21 04:00 Clot Appearance Negative 12/10/21 17:19 Sample Site Rrad 12/10/21 07:04 ABG pH 7.480 (7.35-7.45) H 12/10/21 07:04 ABG pCO2 38.0 mmHg (35.0-45.0) 12/10/21 07:04 ABG pO2 49.0 mmHg (80.0-100.0) L* 12/10/21 07:04 ABG HCO3 28.3 mmol/L (22-26) H 12/10/21 07:04 ABG O2 Saturation 87.0 % (90-100) L 12/10/21 07:04 ABG Base Excess 4.6 mmol/L (-2.0-2.0) H 12/10/21 07:04 Ludwig Test Pos 12/10/21 07:04 A-a Gradient 53.0 mmHg 12/10/21 07:04 FiO2 21.0 12/10/21 07:04 Blood Gas Comments Pt junior well elj cdn 12/10/21 07:04 Sodium 137 mmol/L (136-145) 12/11/21 03:52 Corrected Sodium 138 mmol/L (136-145) 12/11/21 03:52 Potassium 3.7 mmol/L (3.5-5.1) 12/11/21 03:52 Chloride 104 mmol/L (98-107) 12/11/21 03:52 Carbon Dioxide 28.3 mmol/L (21-32) 12/11/21 03:52 BUN 15 mg/dL (7-18) 12/11/21 03:52 Creatinine 0.90 mg/dL (0.55-1.02) 12/11/21 03:52 Est GFR (MDRD) Af Amer > 60 (>60) 12/11/21 03:52 Est GFR (MDRD) Non-Af > 60 (>60) 12/11/21 03:52 Glucose 131 mg/dL (65-99) H 12/11/21 03:52 Calcium 8.0 mg/dL (8.5-10.1) L 12/11/21 03:52 Corrected Calcium 9.4 mg/dL (8.5-10.1) 12/11/21 03:52 Total Bilirubin 0.30 mg/dL (0.2-1.0) 12/11/21 03:52 AST 16 Units/L (15-37) 12/11/21 03:52 ALT 12 Units/L (12-78) 12/11/21 03:52 Alkaline Phosphatase 57 Units/L (46-116) 12/11/21 03:52 Creatine Kinase 55 Units/L (26-192) 12/10/21 06:59 CK-MB (CK-2) 1.5 ng/mL (0-4.0) 12/10/21 06:59 CK/CKMB % Calc 2.7 % (<4) 12/10/21 06:59 Troponin I High Sens 11.6 ng/L (4.0-60.0) 12/10/21 06:59 C-Reactive Protein 15.50 mg/L (0-3.0) H 12/12/21 04:00 B-Natriuretic Peptide 48.4 pg/mL (0-79) 12/10/21 06:59 Total Protein 4.9 g/dL (6.4-8.2) L 12/11/21 03:52 Albumin 2.3 g/dL (3.4-5.0) L 12/11/21 03:52 Globulin 2.6 g/dL (2.5-4.5) 12/11/21 03:52 Albumin/Globulin Ratio 0.9 Ratio (1.1-2.1) L 12/11/21 03:52 Fluid pH 8 12/10/21 17:19 Fluid Polynuclear WBCs 22 % 12/10/21 17:19 Pleural Fluid Volume 900 mL 12/10/21 17:19 Pleural Color Radha 12/10/21 17:19 Pleural Appearance Cloudy 12/10/21 17:19 Pleural WBC 181 Cubic/mm 12/10/21 17:19 Pleural RBC 09298 Cubic/mm 12/10/21 17:19 Pleural Monocytes 78 % 12/10/21 17:19 Pleural Glucose 134 12/10/21 17:19 SARS-CoV-2 (PCR) Negative (NEGATIVE) 12/10/21 07:14 Influenza Type A (PCR) Negative (NEGATIVE) 12/10/21 07:14 Influenza Type B (PCR) Negative (NEGATIVE) 12/10/21 07:14 RSV (PCR) Negative (NEGATIVE) 12/10/21 07:14 Cytology Specimen To follow 12/10/21 17:19 - Plan (1) Pneumonia involving right lung Status: Acute Qualifiers: Pneumonia type: due to unspecified organism Lung location: unspecified part of lung Qualified Code(s): J18.9 - Pneumonia, unspecified organism Plan: ADMIT, SUPPLEMETAL OXYGEN, NORMAL SALINE AT KVO, ZOSYN 3.375G IV TID, LEVAQUIN 500MG IV DAILY, DUONEBS TID, PULMICORT NEBS BID, AND VSL 2 CAPS DAILY. (2) Large pleural effusion Status: Acute Plan: CONSULT FOR POSSIBLE THORACENTESIS, IV ANTIBIOTICS (3) Shortness of breath Status: Acute (4) Multiple lung nodules on CT Status: Acute (5) Status post thoracentesis Status: Acute (6) Hypertension Status: Chronic Qualifiers: Hypertension type: primary hypertension Qualified Code(s): I10 - Essential (primary) hypertension
[2021-12-12] MEDS: NS 1,000 ML IV 1,000 ML IV SCH (14:37)
[2021-12-12] MEDS: ZIAC 5/6.25 MG PO SCH ×2 (14:37→15:10)
[2021-12-12] MEDS ORDERED: PATIENT'S HOME MEDICATION PO PRN (16:00)
[2021-12-12] MEDS ORDERED: ATIVAN TAB 1 MG ONE (21:05)
[2021-12-12] MEDS ORDERED: ATIVAN INJ 2 MG VIAL ONE (21:49)
[2021-12-12] MEDS: ATIVAN INJ 2 MG VIAL IVP PRN (21:57)
[2021-12-13 04:51] LABS: BASOPHILS # (AUTO) 0.1 X10^3/uL (0.0-0.1); BASOPHILS % (AUTO) 1.1 % (0.2-1.0); EOSINOPHILS # (AUTO) 0.3 x10^3/uL (0.0-0.2); EOSINOPHILS % (AUTO) 4.8 % (0.9-2.9); HEMATOCRIT 31.9 % (36.0-47.0); LYMPHOCYTES # (AUTO) 1.8 X10^3/uL (1.3-2.9); LYMPHOCYTES % (AUTO) 32.3 % (21.0-51.0); MEAN CORPUSCULAR HEMOGLOBIN 28.5 pg (27.0-34.0); MEAN CORPUSCULAR HGB CONC 34.4 g/dL (33.0-35.0); MEAN PLATELET VOLUME 8.1 fL (7.4-11.0); MONOCYTES # (AUTO) 0.5 x10^3/uL (0.3-0.8); MONOCYTES % (AUTO) 9.2 % (0.0-13.0); NEUTROPHILS # (AUTO) 2.9 x10^3/uL (2.2-4.8); NEUTROPHILS % (AUTO) 52.6 % (42.0-75.0); RED BLOOD COUNT 3.84 X10^6/uL (3.5-5.4); RED CELL DISTRIBUTION WIDTH 16.3 % (11.6-16.5); WHITE BLOOD COUNT 5.5 X10^3/uL (3.6-10.0)
[2021-12-13 05:06] LABS: ALANINE AMINOTRANSFERASE 18 Units/L (12-78); ALBUMIN 2.3 g/dL (3.4-5.0); ALKALINE PHOSPHATASE 61 Units/L (46-116); ASPARTATE AMINO TRANSFERASE 17 Units/L (15-37); BLOOD UREA NITROGEN 9 mg/dL (7-18); CALCIUM 8.3 mg/dL (8.5-10.1); CARBON DIOXIDE 28.3 mmol/L (21-32); CHLORIDE 103 mmol/L (98-107); COR CA(FOR HYPOALB) 9.7 mg/dL (8.5-10.1); CREATININE 0.96 mg/dL (0.55-1.02); SODIUM 136 mmol/L (136-145); eGFR NON BLACK RACES 60 (>60)
[2021-12-13] MEDS: NS 1,000 ML IV 1,000 ML IV SCH (05:29)
[2021-12-13] MEDS: ZOSYN VIAL 3.375 GRAMS 3.375 G in NS 100 ML IV 100 ML IV SCH (05:51)
[2021-12-13] MEDS: DUONEB 0.5 MG/3 MG (3 mL) NEB SCH (05:55)
--- NOTE | 2021-12-13 06:01 | RAD ---
PROCEDURE: Chest X-ray 1 View .HISTORY: Dyspnea.TECHNIQUE: AP view .COMPARISON: 12/12/2021.TECHNICAL QUALITY: Satisfactory .FINDINGS:Unchanged pneumonia throughout the right lung field. Left lung gu clear. No pleural fluid.Unremarkable cardio mediastinal silhouette.IMPRESSION:Unchanged pneumonia on the right.Electronically signed by: Dago Messina (Dec 13, 2021 05:59:47)
[2021-12-13] MEDS ORDERED: POTASSIUM CHL 60 MEQ/NS 0.45% 500 ML IV PRN (06:50)
[2021-12-13] MEDS ORDERED: K-DUR TAB 20 MEQ PO PRN (06:50)
[2021-12-13] MEDS ORDERED: KLOR-CON PO PRN (06:50)
[2021-12-13] MEDS ORDERED: K-RIDER 10 MEQ/NS 100 ML 10 MEQ/100 ML BAG IV PRN (06:50)
[2021-12-13] MEDS ORDERED: POTASSIUM CHLORIDE LIQ 20 MEQ UDC PO PRN (06:50)
[2021-12-13] MEDS ORDERED: POTASSIUM CHL 40 MEQ/NS 0.45% 500 ML IV PRN (06:50)
[2021-12-13] MEDS ORDERED: MICRO K EXTEN CAP 10 MEQ PO PRN (06:50)
[2021-12-13] MEDS: PULMICORT NEB TX 0.5 MG NEB SCH (08:10)
[2021-12-13] MEDS: VSL#3 PO SCH (08:36)
[2021-12-13] MEDS: LOVENOX INJ 40 MG SYR SC SCH (08:37)
[2021-12-13 08:39] VITALS: BP 126/56
[2021-12-13] MEDS: LEVAQUIN PREMIX IV 500 MG 500 MG/100 ML BAG IV SCH (08:39)
[2021-12-13] MEDS ORDERED: PATIENT'S HOME MEDICATION PO SCH (09:00)
== END 2021-12-13 11:20 | disposition home or self-care (01) | DRG 194 ==
LOC: ER 06:14 → MED/SURG 08:33
PROVIDERS: ADMIT Internal Medicine; ATTEND Internal Medicine
DX: J90 Pleural effusion, not elsewhere classified; R94.31 Abnormal electrocardiogram [ECG] [EKG]; I10 Essential (primary) hypertension; R06.02 Shortness of breath; Z20.822 Contact with and (suspected) exposure to COVID-19; R73.09 Other abnormal glucose; R91.8 Other nonspecific abnormal finding of lung field; J18.8 Other pneumonia, unspecified organism